=== PATIENT | female | born 1955 | race Hispanic/Latino ===

== ENCOUNTER 2018-02-04 10:59 | Emergency (ER) | payer BC ==
[~2018-02-04] VITALS: Ht 165.1 cm; Wt 71.2 kg
--- NOTE | 2018-02-04 12:42 | Diagnostic Imaging Report ---
EXAM: CT Abdomen and Pelvis WITHOUT contrast INDICATION: \[id number] \S\[id number] right lower quadrant pain for 5 days, status post appendectomy. One ovary has been removed. COMPARISON: None. TECHNIQUE: Abdomen and pelvis were scanned utilizing a multidetector helical scanner from the lung base to the pubic symphysis without administration of IV contrast. Absence of intravenous contrast decreases sensitivity for detection of focal lesions and vascular pathology. Coronal and sagittal reformations were obtained. Routine protocol was performed. IV CONTRAST: None. ORAL CONTRAST: Water RADIATION DOSE: Total DLP: 647.8 mGy*cm Estimated effective dose: (DLP x 0.015 x size factor) mSv COMPLICATIONS: None FINDINGS: LINES and TUBES: Partially visualized pacemaker lead in the right ventricle. The left ventricle is enlarged. Minimal scarring in the left lower lobe. LOWER THORAX: Unremarkable HEPATOBILIARY: Few low-attenuation hepatic cysts with the largest measuring up to 3.9 cm on segment 7/8. No focal hepatic lesions. No biliary ductal dilation. GALLBLADDER: No radio-opaque stones or sludge. No wall thickening. SPLEEN: No splenomegaly. PANCREAS: No focal masses or ductal dilatation. ADRENALS: No adrenal nodules KIDNEYS/URETERS: 6 mm calcified stone in the mid right ureter at the level of L3 vertebral body results in mild hydroureteronephrosis. There are additional few bilateral renal 1-4 mm calcified stones, one on the right in the inferior pole on coronary image 54 and at least 5 on the left. No cystic or solid mass lesions. No stones. GI TRACT: No abnormal distention, wall thickening, or evidence of bowel obstruction. Appendix is surgically absent. PELVIC ORGANS/BLADDER: The urinary bladder appears unremarkable without calcified stones. The uterus is normal in size. The left ovary appears present. Right ovary is not visualized. LYMPH NODES: No lymphadenopathy. VESSELS: Unremarkable. PERITONEUM / RETROPERITONEUM: No free air or fluid. BONES: Unremarkable. SOFT TISSUES: Unremarkable. IMPRESSION: 1. Mild obstructing 6 mm right mid ureteral stone. 2. Few bilateral 1 to 4 mm calcified renal stones. Signed by: Dr. Katiana Kinsey M.D. on 02/04/2018 12:39 PM
[2018-02-04] MEDS ORDERED: KETOROLAC TROMETHAMINE 30 MG/ML VIAL IV STA (13:48)
[2018-02-04] MEDS ORDERED: CIPROFLOXACIN 400 MG/D5W 200ML 200 ML IV ONE (14:00)
[2018-02-04] MEDS ORDERED: SODIUM CHLORIDE 0.9% 1000ML 1,000 ML IV SCH (14:00)
--- OUTSIDE RECORDS SUMMARY | 2018-02-08 13:19 | XMS REPORT | Clinical Summary ---
Author Author [facility] Address Unknown Phone Unavailable Care Team Providers Care Earth Science Technical Officer Name Role Phone Asked, No Pcp PCP Unavailable Allergies Not on File Current Medications Not on file Active Problems Not on file Encounters Date Type Specialty Care Team Description 10/08/2017 Ancillary Procedural Cardiology Edwin Masroor AV block Orders MD Zarina 10/04/2017 Hospital Procedural Cardiology Edwin, Masroor AV block Encounter MD Zarina 07/14/2017 Ancillary Procedural Cardiology Gen, Hinduism Rufino AV block Orders 05/28/2017 Ancillary Procedural Cardiology Kermit Blevins MD PhD Atrial fibrillation, Orders unspecified type 05/05/2017 Ancillary Procedural Cardiology Gen, Hinduism Rufino AV block Orders 04/02/2017 Ancillary Procedural Cardiology Kermit Blevins MD PhD AV block Orders 04/01/2017 Ancillary Procedural Cardiology Kermit Blevins MD PhD AV block Orders after 02/03/2017 Social History Tobacco Use Types Packs/Day Years Used Date Never Assessed Sex Assigned at Date Recorded Not on file Last Filed Vital Signs Not on file Plan of Treatment Health Maintenance Due Date Last Done Comments CERVICAL CANCER SCREENING 1978 BREAST CANCER SCREENING 11/23/2007 COLON CANCER SCREENING 11/23/2007 SHINGRIX VACCINE (#1) 11/23/2007 ZOSTER VACCINE 2017 INFLUENZA VACCINE 11/24/2017 Procedures Procedure Name Priority Date/Time Associated Diagnosis Comments CV PACEMAKER DEFIB REMOTE Routine 10/08/2017 AV block TECH SERVICE 3:40 PM CDT after 02/03/2017 Results Not on fileafter 02/03/2017 Insurance Payer Benefit Subscriber ID Type Phone Address Plan / Group BCBS EXCHANGE BLUE xxxxxxxxxxxx Exchange ADVANTAGE HMO EXCH
== END 2018-02-04 15:58 | disposition home or self-care (01) ==
LOC: FSED 10:59
DX: R10.31 Right lower quadrant pain (principal); N13.2 Hydronephrosis with renal and ureteral calculous obstruction; N39.0 Urinary tract infection, site not specified; Z95.0 Presence of cardiac pacemaker
CPT/HCPCS: 74176; 80048; 80076; 81003; 85025; 87086; 87186; 99284; J1885

== ENCOUNTER → 2018-02-10 | Outpatient (CLI) | payer BC ==
--- NOTE | 2018-02-10 15:14 | Diagnostic Imaging Report ---
EXAM: ABDOMEN-1VIEW (KUB) DATE: 02/10/2018 2:38 PM INDICATION: Kidney stones COMPARISON: 02/04/2018 CT FINDINGS: Bowel Gas Pattern: Significant stool largely secures kidneys. No obstructive changes. Pneumoperitoneum: None. Suspicious Calcifications: None. Other: None. IMPRESSION: Significant colonic stool obscures previously described ureteral/renal calculi. Signed by: Dr. Gian Matthews MD on 02/10/2018 3:11 PM
== END ==
LOC: RAD 14:22
PROVIDERS: ATTEND Urology
DX: N20.0 Calculus of kidney (principal)
CPT/HCPCS: 74018

== ENCOUNTER → 2018-02-23 | Day surgery (SDC) | payer BC ==
[2018-02-21 16:00] LABS: BASOPHILS % 0.2 % (0.0-1.0); EOSINOPHILS # (AUTO) 0.2 (0.0-0.4); EOSINOPHILS % 4.7 % (0.0-6.0); HEMATOCRIT 34.1 % (34.2-44.1); HEMOGLOBIN 11.3 g/dL (12.0-16.0); LYMPHOCYTES # (AUTO) 2.1 (1.0-3.2); LYMPHOCYTES % 51.9 % (18.0-39.1); MEAN CORPUSCULAR HEMOGLOBIN 29.9 pg (28-32); MEAN CORPUSCULAR HGB CONC 33.1 g/dL (31-35); MEAN CORPUSCULAR VOLUME 90.2 fL (81-99); MONOCYTES # (AUTO) 0.4 (0.2-0.8); MONOCYTES % 9.9 % (4.4-11.3); NEUTROPHILS # (AUTO) 1.3 (2.1-6.9); NEUTROPHILS % 33.3 % (38.7-80.0); PLATELET COUNT 126 x10e3/uL (140-360); RED BLOOD COUNT 3.78 x10e6/uL (3.6-5.1); RED CELL DISTRIBUTION WIDTH 13.3 % (11.7-14.4)
--- NOTE | 2018-02-21 16:54 | Diagnostic Imaging Report ---
EXAMINATION: PA and lateral views of the chest. COMPARISON: None CLINICAL HISTORY: Preop exam. DISCUSSION: Lines/tubes: Left upper chest dual lead cardiac device, with distal tips projecting in the right atrium and right ventricle. Lungs: The lungs are well inflated and clear. There is no evidence of pneumonia or pulmonary edema. Pleura: There is no pleural effusion or pneumothorax. Heart and mediastinum: Cardiomediastinal silhouette is borderline enlarged. Pulmonary vasculature is normal. Bones and soft tissues: No acute bony abnormalities. Degenerative changes in the thoracic spine IMPRESSION: No acute cardiopulmonary abnormalities. Signed by: Dr. Wojciech Lockwood M.D. on 02/21/2018 4:51 PM
[~2018-02-23] MED LIST: ACETAMINOPHEN/CODEINE 300MG - 30MG TAB ONE; BELLADONNA/OPIUM 60 MG SUPP PR ONE; CEFTRIAXONE SOD 1 GM VIAL ONE; DEXAMETHASONE SOD PHOS INJ 4 MG/ML VIAL ONE; EPHEDRINE SULFATE INJ 50 MG/10 ML SYR ONE; FENTANYL CITRATE/PF 100MCG/2 ML INJ ONE; IOPAMIDOL 610MG/1ML 300 MG/ML VIAL IV ONE; LIDOCAINE HCL 2% LOCAL INJ 5 ML SDV VIAL INJ ONE; MIDAZOLAM HCL 2 MG/2 ML VIAL ONE; ONDANSETRON HCL INJ 2 MG/ML VIAL ONE; PROPOFOL IV EMULSION 10 MG/ML 20 ML VIAL ONE; SEVOFLURANE INHAL SOLN 250 ML PEN BTL ONE
--- OUTSIDE RECORDS SUMMARY | 2018-02-23 05:13 | XMS REPORT | Clinical Summary ---
Author Author [facility] Organization [facility] Address Unknown Phone Unavailable Care Team Providers Care Cotton Grader Name Role Phone Asked, No Pcp PCP Unavailable Allergies Not on File Current Medications Not on file Active Problems Not on file Encounters Date Type Specialty Care Team Description 10/08/2017 Ancillary Procedural Cardiology Edwin Masroor AV block Orders MD Zarina 10/04/2017 Hospital Procedural Cardiology Edwin, Masroor AV block Encounter MD Zarina 07/14/2017 Ancillary Procedural Cardiology Gen, Buddhism Rufino AV block Orders 05/28/2017 Ancillary Procedural Cardiology Kermit Blevins MD PhD Atrial fibrillation, Orders unspecified type 05/05/2017 Ancillary Procedural Cardiology Gen, Buddhism Rufino AV block Orders 04/02/2017 Ancillary Procedural Cardiology Kermit Blevins MD PhD AV block Orders 04/01/2017 Ancillary Procedural Cardiology Kermit Blevins MD PhD AV block Orders after 02/22/2017 Social History Tobacco Use Types Packs/Day Years [...] block TECH SERVICE 3:40 PM CDT after 02/22/2017 Results Not on fileafter 02/22/2017 Insurance Payer Benefit Subscriber ID Type Phone Address Plan / Group BCBS EXCHANGE BLUE xxxxxxxxxxxx Exchange ADVANTAGE HMO EXCH
--- OUTSIDE RECORDS SUMMARY | 2018-02-23 05:13 | XMS REPORT ---
[facility] [place] Address Unknown Phone Unavailable Care Team Providers Care Imagery Analyst Name Role Phone ZEINA OAKES Unavailable Unavailable Connie BRICE Unavailable Unavailable Problems This patient has no known problems. Allergies, Adverse Reactions, Alerts This patient has no known allergies or adverse reactions. Medications This patient has no known medications. Results Test Description Test Time Test Comments Text Results Atomic Results Result Comments CHEST 2 VIEWS 2018-02-21 16:50:00 [place] [address] Patient Name: CHERYL VILLAFUERTE MR #: [id number] : 1955 Age/Sex: 62/F Req #: [id number] Adm Physician: Ordered by: ZEINA OAKES MD Report #: [id number] Location: OR Room/Bed: Procedure: [id number] DX/CHEST 2 VIEWS Exam Date: 02/21/18 Exam Time: 1635 REPORT STATUS: Signed EXAMINATION: PA and lateral views of the chest. COMPAR BLAKE: None CLINICAL HISTORY: Preop exam. DISCUSSION: Lines/tubes: Left upper chest dual lead cardiac device, with distal tips projecting in the right atrium and right ventricle. Lungs: The lungs are well inflated and clear. There is no evidence of pneumonia or pulmonary edema. Pleura: There is no pleural effusion or pneumothorax. Heart and mediastinum: Cardiomediastinal silhouette is borderline enlarged. Pulmonary vasculature is normal. Bones and soft tissues: No acute bony abnormalities. Degenerative changes in the thoracic spine IMPRESSION: No acute cardiopulmonary abnormalities. Signed by: Dr. Laine Lockwood M.D. on 02/21/2018 4:51 PM Dictated By: LAINE LOCKWOOD MD 50 Transcribed By: EMETERIO on 02/21/181650 COPY TO: ZEINA OAKES MD ABDOMEN-1VIEW (KUB) 2018-02-10 15:10:00 [place] [address] Patient Name: CHERYL VILLAFUERTE MR #: [id number] : 1955 Age/Sex: 62/F Req #: [id number] Adm Physician: Ordered by: ZEINA OAKES MD Report #: [id number] [facility]: [facility] Room/Bed: Procedure: [id number] DX/ABDOMEN-1VIEW (KUB) Exam Date: Exam Time: REPORT STATUS: Signed EXAM: ABDOMEN-1VIEW (KUB) DATE: 02/10/2018 2:38 PM INDICAT ION: Kidney stones COMPARISON: 02/04/2018 CT FINDINGS: Bowel Gas Pattern: Significant stool largely secures kidneys. No obstructive changes. Pneumoperitoneum: None. Suspicious Calcifications: None. Other: None. IMPRESSION: Significant colonic stool obscures previously described ureteral/renal calculi. Signed by: Dr. Gian Matthews MD on 02/10/2018 3:11 PM Dictated By: GIAN MATTHEWS MD 10 Transcribed By: EMETERIO on 02/10/181510 COPY TO: ZEINA OAKES MD CT ABD/PEL WO CONTRAST-HOPD 2018-02-04 12:31:00 [place] [address] Patient Name: CHERYL VILLAFUERTE MR #: [id number] : 1955 Age/Sex: 62/F Req #: [id number] Adm Physician: Ordered by: MARY CARMEN BRICE MD Report #: [id number] Location: [facility] Room/Bed: Procedure: [id number] HOPD/CT ABD/PEL WO CONTRAST- HOPD Exam Date: 02/04/18 Exam Time: 1215 REPORT STATUS: Signed EXAM: CT Abdomen and Pelvis WITHOUT contrast INDICATION: ovary has been removed. COMPARISON: None. TECHNIQUE: Abdomen and pelvis were scanned utilizing a multidetector helical scanner from the lung base to the pubic symphysis without administration of IV contrast. Absence of intravenous contrast decreases sensitivity for detection of focal lesions and vascular pathology. Coronal and sagittal reformations were obtained. Routine protocol was performed. IV CONTRAST: None. ORAL CONTRAST: Water RADIATION DOSE: Total DLP: 647.8 mGy*cm Estimated effective dose: (DLP x 0.015 x size factor) mSv COMPLICATIONS: None FINDINGS: LINES and TUBES: Partially visualized pacemaker lead in the right ventricle. The left ventricle is enlarged. Minimal scarring in the left lower lobe. LOWER THORAX: Unremarkable HEPATOBILIARY: Few low-attenuation hepatic cysts with the largest measuring up to 3.9 cm on segment 7/8. No focal hepatic lesions. No biliary ductal dilation. GALLBLADDER: No radio-opaque stones or sludge. No wall thickening. SPLEEN: No splenomegaly. PANCREAS: No focal masses or ductal dilatation. ADRENALS: No adrenal nodules KIDNEYS/URETERS: 6 mm calcified stone in the mid right ureter at the level of L3 vertebral body results in mild hydroureteronephrosis. There are additional few bilateral renal 1-4 mm calcified stones, one on the right in the inferior pole on coronary image 54 and at least 5 on the left. No cystic or solid mass lesions. No stones. GI TRACT: No abnormal distention, wall thickening, or evidence of bowel obstruction. Appendix is surgically absent. PELVIC ORGANS/BLADDER: The urinary bladder appears unremarkable without calcified stones. The uterus is normal in size. The left ovary appears present. Right ovary is not visualized. LYMPH NODES: No lymphadenopathy. VESSELS: Unremarkable. PERITONEUM / RETROPERITONEUM: No free air or fluid. BONES: Unremarkable. SOFT TISSUES: Unremarkable. IMPRESSION: 1. Mild obstructing 6 mm right mid ureteral stone. 2. Few bilateral 1 to 4 mm calcified renal stones. Signed by: Dr. Jack Coleman M.D. on 02/04/2018 12:39 PM Dictated By: JACK COLEMAN MD 1239 Transcribed By: EMETERIO on 02/04/18 1239 COPY TO: MARY CARMEN BRICE MD
[2018-02-23 06:24] LABS: ANION GAP 11.2 mmol/L (8-16); BLOOD UREA NITROGEN 13 mg/dL (7-26); BUN/CREATININE RATIO 21 (6-25); CALCIUM 9.1 mg/dL (8.4-10.2); CARBON DIOXIDE 26 mmol/L (22-29); CHLORIDE 107 mmol/L (98-107); CREATININE, SERUM 0.63 mg/dL (0.57-1.11); EST GLOMERULAR FILTRATION RATE > 60 ML/MIN (60-); GLUCOSE 93 mg/dL (74-118); POTASSIUM 3.2 mmol/L (3.5-5.1); SODIUM 141 mmol/L (136-145)
--- NOTE | 2018-02-23 07:07 | Diagnostic Imaging Report ---
PROCEDURE:X-RAY ABDOMEN - KUB COMPARISON:02/10/2018. CT abdomen and pelvis without contrast 02/04/2018 INDICATIONS:PRE-OP CALCULUS OF KIDNEY FINDINGS: 6 mm mid right ureteral calculus described on the comparison CT is not definitively visualized by plain radiography. 2 calcifications measuring up to 6 mm are identified projecting over the left renal shadow. Bowel gas pattern is nonobstructive. Regional skeletal structures are intact. CONCLUSION: Small left renal calculi as above. Right ureteral calculus described on the comparison CT is not identified by plain radiography. Dictated by: Macho Lora M.D. on 02/23/2018 at 7:15 Electronically approved by: Macho Lora M.D. on 02/23/2018 at 7:15
[2018-02-23 09:45] VITALS: BP 164/86
--- NOTE | 2018-04-04 04:56 | Operative Report ---
DATE OF PROCEDURE: February 23, 2018 PREOPERATIVE DIAGNOSES 1. Nephrolithiasis. 2. Urinary tract infections. POSTOPERATIVE DIAGNOSES 1. Nephrolithiasis. 2. Urinary tract infections. 3. Left nephrolithiasis. 4. Bilateral ureteral strictures. 5. Bilateral hydronephrosis due to stricture of the ureter. 6. Urethral stenosis. 7. Grade-2 cystocele. 8. Grade-1 rectocele. 9. Urethral hypomobility. 10. Atrophic (senile) vaginitis. OPERATIONS PERFORMED 1. Cystourethroscopy with bilateral ureteral catheterization and retrograde ureteropyelography (separate procedure performed for the urinary tract infections). 2. Interpretation of retrograde ureteropyelography. 3. Supervision of fluoroscopy. No radiologist present. 4. Left ureteroscopy with dilation and calibration of ureteral stricture (separate procedure performed for the diagnosis of stricture). 5. Left ureteroscopy with stone manipulation (separate procedure performed for the left nephrolithiasis). 6. Right ureteroscopy with dilation of right ureteral stricture (separate procedure performed for the diagnosis of stricture). 7. Urological services for supervision and interpretation of ureteroscopy. 8. Pelvic examination under anesthesia. 9. Cystourethroscopy with insertion of bilateral indwelling ureteral stents (separate procedure performed for the hydronephrosis). ANESTHESIA: General. CLINICAL SUMMARY: Aurelia Sotomayor is a 62-year-old woman, who presents with urinary tract infections and nephrolithiasis. She was brought for management. She is aware of the risks of bleeding, infection, injury to adjacent structures, high likelihood of additional procedures, and she elected to proceed. OPERATIVE PROCEDURE IN DETAIL: Informed consent was verified. Aurelia Sotomayor was properly identified, taken to the operating room, placed on the cystoscopy table in supine position. Anesthesia was uneventfully begun. Patient was then carefully and gently repositioned in the dorsal lithotomy position with all pressure points well padded. Her genitalia were prepared and draped in usual sterile fashion. A 22.5-[place] cystoscope sheath with the obturator in place could not be easily placed into the patient's urethra. It was calibrated at 16-[place] in size and dilated to 28-[place] in size. This enabled us to easily place the 22.5-[place] cystoscope sheath with the obturator in place and the bladder was drained. Panendoscopy revealed no suspicious mucosal lesions, no tumors, no stones, and no diverticula. Normally positioned and configured ureteral orifices were identified. A ureteral catheter was used to cannulate the right ureter and retrograde ureteropyelography was performed. We then passed a guidewire into the left ureter. We then proceeded with guiding a ureteroscope up into the right ureter. We encountered a ureteral stricture. We dilated across this stricture with the ureteroscope with an aid of a secondary guidewire. As we proceeded, there was bleeding noted and we, therefore, decided to stop in order to avoid stirring up any more bleeding. Therefore, the ureteroscope was withdrawn. With cystoscopic fluoroscopic guidance, a right-sided indwelling ureteral stent was then placed, coiled in the patient's kidney, as well as the patient's bladder. Ureteral catheter was inserted in the left ureter and retrograde ureteropyelography was performed. A guidewire was then placed into the left ureter. The semirigid ureteroscope was then placed alongside the wire up into the left ureter. We dilated a stricture in the left ureter as well. We identified small stones within the ureter. They were too small to grasp. We irrigated the small stones. A secondary guidewire was left in place. We guided this flexible ureteroscope over the secondary guidewire up into the level of the patient's kidney. Panendoscopy revealed Ryley's plaques and some fine sand. We irrigated the sand and thus, manipulated it and loosened it, but we were unable to identify any larger stones. Therefore, the ureteroscope was withdrawn. With cystoscopic fluoroscopic guidance, a left-sided indwelling ureteral stent was then placed. It was coiled in patient's kidney as well as patient's bladder. Interpretation of retrograde ureteropyelography: Contrast was instilled in retrograde fashion bilaterally. Ureteral strictures were documented bilaterally. There was fullness of both upper collecting systems. The stents were in good position, coiled in the patient's kidneys, as well as the patient's bladder at the end the case. Patient's bladder was drained and the cystoscope was withdrawn. Pelvic examination revealed grade-2 cystocele with a grade-1 rectocele. There was urethral hypermobility and atrophic (senile) vaginitis. The patient was then uneventfully reversed from anesthesia and taken to the recovery room in stable condition. Explicit postoperative instructions were given. Will return the patient to the operating room to remove her stents, perform bilateral ureteroscopy, and evaluate and manage any residual stones. HOLLY: 04/04/2018 02:56 Job#: [id number] [id number]
== END | disposition home or self-care (01) ==
LOC: OR 05:11
PROVIDERS: ATTEND Urology
DX: N20.0 Calculus of kidney (principal); N13.1 Hydronephrosis with ureteral stricture, not elsewhere classified; N39.0 Urinary tract infection, site not specified; N35.92 Unspecified urethral stricture, female; N81.10 Cystocele, unspecified; N81.6 Rectocele; N36.41 Hypermobility of urethra; N95.2 Postmenopausal atrophic vaginitis; I45.10 Unspecified right bundle-branch block; I44.0 Atrioventricular block, first degree; Z01.810 Encounter for preprocedural cardiovascular examination; Z01.812 Encounter for preprocedural laboratory examination; Z01.818 Encounter for other preprocedural examination; Z95.0 Presence of cardiac pacemaker
CPT/HCPCS: 36415 ×2; 52332; 52344; 52352; 71046; 74420; 80048; 83970; 84550; 85025; 93005; C2617 ×2; J0696; J1100; J2001; J2250; J2405; J2704; Q9967; 74018

== ENCOUNTER → 2018-03-23 | Day surgery (SDC) | payer BC ==
[~2018-03-23] MED LIST changes: -ACETAMINOPHEN/CODEINE 300MG - 30MG TAB ONE; -EPHEDRINE SULFATE INJ 50 MG/10 ML SYR ONE; +IOPAMIDOL 300MG/ML 50ML INFUS..BTL IV ONE; -IOPAMIDOL 610MG/1ML 300 MG/ML VIAL IV ONE
--- OUTSIDE RECORDS SUMMARY | 2018-03-23 07:26 | XMS REPORT | Clinical Summary ---
Author Author [facility] Organization [facility] Address Unknown Phone Unavailable Care Team Providers Care Recordak Operator Name Role Phone Asked, No Pcp PCP Unavailable Allergies Not on File Medications Not on file Active Problems Not on file Encounters Care Team Description Date Type Specialty America Pineda MD AV block 10/04/2017 Hospital Procedural Cardiology Encounter after 03/22/2017 Social History Date Tobacco Use Types Packs/Day Years Used Never Assessed Sex Assigned at Date Recorded Not on file Industry Job Start Date Occupation Not on file Not on file Not on file Travel End Travel History Travel Start No recent travel history available. Last Filed Vital Signs Not on file Plan of Treatment Health Maintenance Due Date Last Done Comments MMR VACCINES (1 of 1 - 1958 Standard series) CERVICAL CANCER SCREENING 1978 BREAST CANCER SCREENING 11/23/2007 COLON CANCER SCREENING 11/23/2007 SHINGRIX VACCINE (1 of 2) 11/23/2007 ZOSTER VACCINE 2017 INFLUENZA VACCINE 11/24/2017 HEPATITIS B VACCINES Aged Out No longer eligible based on patient's age to complete this topic IPV VACCINES Aged Out No longer eligible based on patient's age to complete this topic MENINGOCOCCAL VACCINE Aged Out No longer eligible based on patient's age to complete this topic VARICELLA VACCINES Aged Out No longer eligible based on patient's age to complete this topic Procedures Comments Procedure Name Priority Date/Time Associated Diagnosis CV PACEMAKER DEFIB REMOTE Routine 10/08/2017 AV block TECH SERVICE 3:40 PM CDT after 03/22/2017 Results Not on fileafter 03/22/2017 Insurance Payer Benefit Subscriber ID Type Phone Address Plan / Group BCBS EXCHANGE BLUE xxxxxxxxxxxx Exchange ADVANTAGE HMO EXCH Advance Directives Patient has advance care planning documents on file. For more information, jaye e contact: Farhad Pratt[address] [place] [address]
[2018-03-23 13:05] VITALS: BP 144/69
--- NOTE | 2018-03-24 00:08 | Operative Report ---
DATE OF PROCEDURE: March 23, 2018 PREOPERATIVE DIAGNOSES: 1. Urolithiasis. 2. Bilateral indwelling ureteral stents. POSTOPERATIVE DIAGNOSES: 1. Right ureterolithiasis. 2. Left nephrolithiasis. 3. Bilateral indwelling ureteral stents. 4. Mild cystocele. 5. Mild rectocele. 6. Urethral hypermobility. 7. Atrophic (senile) vaginitis. OPERATIONS PERFORMED: 1. Cystourethroscopy with removal of bilateral indwelling ureteral stents (separate procedure performed for the diagnosis of stents done with separate scope). 2. Right ureteroscopy with holmium laser lithotripsy and insertion of stent (separate procedure performed for the right ureterolithiasis). 3. Left ureteroscopy with holmium laser lithotripsy of kidney stone and insertion of stent (separate procedure performed for the left-sided stone). 4. Radiological services for supervision and interpretation of ureteroscopy. 5. Interpretation of retrograde ureteropyelography. 6. Supervision of fluoroscopy, no radiologist present. 7. Pelvic examination under anesthesia. ANESTHESIA: General. COMPLICATIONS: None. CLINICAL SUMMARY: Aurelia Sotomayor is a 62-year-old woman who several weeks ago underwent dilation of bilateral ureteral strictures with left ureteroscopy and stone manipulation. She is brought to the operating room for followup procedures. She is aware of the risks of bleeding, infection, injury to adjacent structures, need for additional procedures, and elected to proceed. OPERATIVE PROCEDURE IN DETAIL: Informed consent was verified. Aurelia Sotomayor was properly identified, taken to the operating room, and placed on the cystoscopy table in supine position. Anesthesia was uneventfully begun. The patient was then carefully and gently repositioned in the dorsal lithotomy position with all pressure points well padded. Her genitalia were prepared and draped in usual sterile fashion. The 22.5-Mongolian cystourethroscope sheath with the obturator in place was atraumatically inserted into patient's urethra and bladder was drained. Panendoscopy revealed bilateral indwelling ureteral stents, but there were no suspicious mucosal lesions and no stones. A guidewire was then placed into the right ureter and guided to the level of the patient's kidney. The stent was then grasped, completely removed, and discarded. A semirigid ureteroscope was then placed alongside the guidewire and guided into the right ureter where we identified a stone. Holmium laser lithotripsy was performed to whittle the stone down to smaller fragments, and then a basket was utilized to atraumatically extract these fragments. There was no sign of recurrent ureteral stricture. A flexile ureteroscope was then placed. It was guided into the patient's kidney. Careful panendoscopy revealed Ryley's plaques, but no kidney stones. With cystoscopic and fluoroscopic guidance, a right-sided indwelling ureteral stent was then placed. It was coiled in patient's kidney as well as patient's bladder. The retaining suture was cut short. A guidewire was then placed into the left ureter and guided to the level of the patient's kidney. The left ureteral stent was grasped, pulled out through the urethral meatus, and discarded. Semirigid ureteroscopy was performed on left hand side. It revealed some fine sand within the ureter, but no stones that could be grasped or lasered. We then placed the flexible ureteroscope. We guided it to level of the patient's kidney. The flexible ureteroscope revealed stones within the kidney. Holmium laser lithotripsy was performed to vaporize these stones into smaller fragments. These fragments were too small to grasp, but they are all passable, and very fine sand is the only thing that remains. With cystoscopic and fluoroscopic guidance, a left-sided indwelling ureteral stent was then placed. It was coiled in patient's kidney as well as patient's bladder. The retaining suture was cut short. Interpretation of retrograde ureteropyelography: Contrast was instilled in retrograde fashion via the ureteroscope. There was bilateral hydronephrosis with some caliceal blunting. The stents were in good position, coiled in patient's kidney as well as patient's bladder at the end of the case. The patient's bladder was drained. The cystoscope was withdrawn. Pelvic examination under anesthesia revealed a grade 1 cystocele, grade 1 rectocele. There was urethral hypermobility and atrophic vaginitis. No suspicious mucosal lesions were identified. There were no abnormal palpable pelvic masses. A belladonna and opium suppository was placed, and the patient was uneventfully reversed from anesthesia and taken to recovery room in stable condition. There were no complications. Explicit postop instructions were given. Will return the patient to the operating room to remove her stents and re-evaluate the stone burden remaining. Job#: [id number] cc:ROMA REYES MD
== END | disposition home or self-care (01) ==
LOC: OR 07:23
PROVIDERS: ATTEND Urology
DX: N20.1 Calculus of ureter (principal); N20.0 Calculus of kidney; Z46.6 Encounter for fitting and adjustment of urinary device; N13.30 Unspecified hydronephrosis; N28.89 Other specified disorders of kidney and ureter; N81.10 Cystocele, unspecified; N81.6 Rectocele; N36.41 Hypermobility of urethra; N95.2 Postmenopausal atrophic vaginitis; Z95.0 Presence of cardiac pacemaker
CPT/HCPCS: 52356; 74420; 88300; C1758; C2617; J0696; J1100; J2001; J2250; J2405; J2704; Q9967

== ENCOUNTER → 2018-04-13 | Day surgery (SDC) | payer BC ==
[2018-04-11 15:43] LABS: BASOPHILS % 0.6 % (0.0-1.0); EOSINOPHILS # (AUTO) 0.2 (0.0-0.4); EOSINOPHILS % 6.4 % (0.0-6.0); HEMATOCRIT 34.6 % (34.2-44.1); HEMOGLOBIN 10.9 g/dL (12.0-16.0); LYMPHOCYTES # (AUTO) 1.6 (1.0-3.2); MEAN CORPUSCULAR HEMOGLOBIN 28.8 pg (28-32); MEAN CORPUSCULAR HGB CONC 31.5 g/dL (31-35); MEAN CORPUSCULAR VOLUME 91.3 fL (81-99); MONOCYTES # (AUTO) 0.4 (0.2-0.8); MONOCYTES % 9.8 % (4.4-11.3); NEUTROPHILS # (AUTO) 1.4 (2.1-6.9); NEUTROPHILS % 38.9 % (38.7-80.0); PLATELET COUNT 130 x10e3/uL (140-360); RED BLOOD COUNT 3.79 x10e6/uL (3.6-5.1); RED CELL DISTRIBUTION WIDTH 12.3 % (11.7-14.4)
[2018-04-11 16:01] LABS: ANION GAP 13.2 mmol/L (8-16); BLOOD UREA NITROGEN 17 mg/dL (7-26); BUN/CREATININE RATIO 27 (6-25); CALCIUM 9.1 mg/dL (8.4-10.2); CARBON DIOXIDE 26 mmol/L (22-29); CHLORIDE 110 mmol/L (98-107); CREATININE, SERUM 0.62 mg/dL (0.57-1.11); EST GLOMERULAR FILTRATION RATE > 60 ML/MIN (60-); GLUCOSE 85 mg/dL (74-118); POTASSIUM 4.2 mmol/L (3.5-5.1); SODIUM 145 mmol/L (136-145)
[~2018-04-13] MED LIST changes: +BELLADONNA/OPIUM 30 MG SUPP RC ONE; -BELLADONNA/OPIUM 60 MG SUPP PR ONE; -CEFTRIAXONE SOD 1 GM VIAL ONE; +CEFTRIAXONE SOD 1 GM/NS 50 ML 50 ML IV ONE; -IOPAMIDOL 300MG/ML 50ML INFUS..BTL IV ONE; +IOPAMIDOL 610MG/1ML 300 MG/ML VIAL IV ONE; -ONDANSETRON HCL INJ 2 MG/ML VIAL ONE; +ONDANSETRON HCL INJ 2MG/ML 2ML 2 MG/ML VIAL ONE
--- OUTSIDE RECORDS SUMMARY | 2018-04-13 09:31 | XMS REPORT | Clinical Summary ---
Author Author [facility] Organization [facility] Address Unknown Phone Unavailable Care Team Providers [facility] [employer] Name Role Phone Asked, No Pcp PCP Unavailable Allergies Not on File Medications Not on file Active Problems Not on file Encounters Care Team Description Date Type Specialty America Pineda MD AV block 10/04/2017 Hospital Procedural Cardiology Encounter after 04/12/2017 Social History Date Tobacco Use Types Packs/Day [...] CANCER SCREENING 11/23/2007 COLON CANCER SCREENING 11/23/2007 SHINGLES VACCINES (1 of 11/23/2007 2) INFLUENZA VACCINE 11/24/2017 Procedures Comments Procedure Name Priority Date/Time Associated Diagnosis CV PACEMAKER DEFIB REMOTE Routine 10/08/2017 AV block TECH SERVICE 3:40 PM CDT after 04/12/2017 Results Not on fileafter 04/12/2017 Insurance Payer Benefit Subscriber ID Type Phone Address Plan / Group BCBS EXCHANGE BLUE xxxxxxxxxxxx Exchange ADVANTAGE HMO EXCH Advance Directives Patient has advance care planning documents on file. For more information, jaye oconnor contact: Farhad Russell [address] [place] [address]
--- NOTE | 2018-04-13 10:29 | Diagnostic Imaging Report ---
EXAM: ABDOMEN-1VIEW (KUB) DATE: 04/13/2018 12:00 AM INDICATION: ,Preoperative, renal calculi Stents COMPARISON: 02/23/2018 FINDINGS: Bowel Gas Pattern: Non-obstructive. Pneumoperitoneum: None. Suspicious Calcifications: Bilateral ureteral stents present. No distinct calcifications along stent. Stool and bowel gas obscures kidneys. Other: Right ventricular pacemaker lead partially visualized. IMPRESSION: Bilateral ureteral stents. Signed by: Dr. Gian Matthews MD on 04/13/2018 10:26 AM
[2018-04-13 12:40] VITALS: BP 146/82
--- NOTE | 2018-06-07 02:18 | Operative Report ---
DATE OF PROCEDURE: April 13, 2018 PREOPERATIVE DIAGNOSES: 1. Nephrolithiasis. 2. Bilateral indwelling ureteral stents. 3. Grade 2 cystocele. 4. Urethral hypermobility. 5. Rectocele. 6. Atrophic vaginitis. POSTOPERATIVE DIAGNOSES: 1. Nephrolithiasis. 2. Bilateral indwelling ureteral stents. 3. Grade 2 cystocele. 4. Urethral hypermobility. 5. Rectocele. 6. Atrophic vaginitis. OPERATIONS PERFORMED: 1. Cystourethroscopy with complicated removal of bilateral indwelling ureteral stents (separate procedure performed with separate scope for diagnosis of the stents). 2. Bilateral ureteroscopy with stone manipulation (separate procedure performed for the fine sand remaining in the patient's kidneys bilaterally). 3. Radiological services for supervision and interpretation of ureteroscopy. 4. Interpretation of retrograde ureteropyelography. 5. Supervision of fluoroscopy, no radiologist present. 6. Pelvic examination under anesthesia. ANESTHESIA: General. COMPLICATIONS: None. CLINICAL SUMMARY: Aurelia Sotomayor is a 62-year-old woman who had bilaterally urolithiasis. She underwent ureteral stenting, bilateral procedures. She is brought to the operating room to remove the stents and hopefully render her stent-free and stone-free. She is aware of the risks of bleeding, infection, injury to adjacent structures, need for additional procedures, and elected to proceed. OPERATIVE PROCEDURE IN DETAIL: Informed consent was verified. Aurelia Sotomayor was properly identified, taken to the operating room, and placed on the cystoscopy table in supine position. Anesthesia was uneventfully begun. The patient was then carefully and gently repositioned in dorsal lithotomy position with all pressure points well padded. Her genitalia were prepared and draped in usual sterile fashion. The 22.5-[place] cystoscope sheath with the obturator in place was atraumatically inserted into patient's urethra and bladder was drained. Panendoscopy of the urinary bladder revealed no suspicious mucosal lesions. There were no tumors, no stones, and no diverticula. Normally positioned and configured ureteral orifices were identified. Identical procedures were performed bilaterally with identical results. We placed a guidewire into 1 ureter and guided to the level of the patient's kidney. The stent was then grasped, completely removed, and discarded. A semirigid ureteroscope was then placed alongside the guidewire and guided to the level of midureter and no stones were identified, but there was mild sand noted bilaterally. The semirigid ureteroscope was withdrawn. A flexible ureteroscope was then placed over the guidewire and guided to the level of the patient's kidney. Careful panendoscopy revealed some fine sand. This is the only sign of stones that were residual from the prior ureteroscopy and laser lithotripsy. This fine sand was too small to grasp. We irrigated this sand loose from the mucosa. This sand should be passable without the necessity of a stent. No suspicious lesions were identified. We carefully re-examined the ureter as we exited it. A combination of procedures was identified on the contralateral side with identical results. Interpretation of retrograde ureteropyelography: Contrast was instilled in retrograde fashion via the ureteroscopes. There was bilateral fullness. This was more prominent on the right than on the left. The left renal pelvis was more bifid. The right renal pelvis contained short calices and a large capacious pelvis. Contrast could be seen freely flowing down both ureters in an unobstructed fashion. The patient's bladder was then drained. The cystoscope was withdrawn. Pelvic examination under anesthesia revealed grade 2 cystocele with urethral hypermobility. There was a rectocele and atrophic vaginitis. No suspicious mucosal lesions could be identified and there were no palpable pelvic masses. The patient was then uneventfully reversed from anesthesia and taken to recovery room in stable condition. There were no complications to the procedure. She tolerated the procedure well. Plans will be to follow the patient up on an ongoing basis both to manage any voiding symptomatology and also to pursue metabolic stone workup and future stone prevention. Job#: [id number]
== END | disposition home or self-care (01) ==
LOC: OR 09:29
PROVIDERS: ATTEND Urology
DX: N20.0 Calculus of kidney (principal); Z46.6 Encounter for fitting and adjustment of urinary device; N81.10 Cystocele, unspecified; N36.41 Hypermobility of urethra; N81.6 Rectocele; N95.2 Postmenopausal atrophic vaginitis; I44.30 Unspecified atrioventricular block; Z01.812 Encounter for preprocedural laboratory examination; Z95.0 Presence of cardiac pacemaker
CPT/HCPCS: 36415; 52351; 74018; 80048; 84550; 85025; 93005; J0696; J1100; J2001; J2250; J2405; J2704; Q9967; 74420

== ENCOUNTER → 2018-06-24 | Outpatient (CLI) | payer BC ==
--- NOTE | 2018-06-24 12:38 | Diagnostic Imaging Report ---
EXAM: ABDOMEN-1VIEW (KUB) DATE: 06/24/2018 11:31 AM INDICATION: Kidney stone COMPARISON: KUB, 04/13/2018 FINDINGS: 2 supine views of the abdomen show a normal distribution of air in the small and large bowel. Since previous exam bilateral ureteral stents have been removed. No discrete abnormal calcifications are projected on either kidney, along the expected path of IV ureter or urinary bladder. However, in some areas small calcifications may be obscured by overlying bone or bowel. Again noted is an intracardiac lead. No acute bony abnormality. IMPRESSION: 1. No bowel dilatation or evidence for obstruction. 2. Interval removal of bilateral ureteral stents. Signed by: Dr. Neal Almanzar M.D. on 06/24/2018 12:35 PM
== END ==
LOC: RAD 11:22
PROVIDERS: ATTEND Urology
DX: N20.0 Calculus of kidney (principal)
CPT/HCPCS: 74018

== ENCOUNTER → 2018-09-29 | Outpatient (CLI) | payer BC ==
--- NOTE | 2018-09-29 14:25 | Diagnostic Imaging Report ---
Exam: KUB - 2 views Clinical History: Renal stone. Comparison: KUB 06/24/2018. Findings: A 5 mm calcification projects over the left upper kidney. Bowel gas partially obscures visualization of the kidneys. No evidence of calcification overlying the expected course of the ureters. Nonobstructive bowel gas pattern. Moderate amount of stool in the colon. No acute osseous abnormality. Impression: Likely 5 mm left upper pole renal stone. Signed by: Dr. Lucio Davidson MD on 09/29/2018 2:21 PM
== END ==
LOC: RAD 13:27
PROVIDERS: ATTEND Urology
DX: N20.0 Calculus of kidney (principal)
CPT/HCPCS: 74018

== ENCOUNTER → 2020-02-02 | Outpatient (CLI) | payer BC ==
[~2020-02-02] MED LIST changes: -BELLADONNA/OPIUM 30 MG SUPP RC ONE; -CEFTRIAXONE SOD 1 GM/NS 50 ML 50 ML IV ONE; -DEXAMETHASONE SOD PHOS INJ 4 MG/ML VIAL ONE; -FENTANYL CITRATE/PF 100MCG/2 ML INJ ONE; +HYDROCHLOROTHIA25 MG; -IOPAMIDOL 610MG/1ML 300 MG/ML VIAL IV ONE; -LIDOCAINE HCL 2% LOCAL INJ 5 ML SDV VIAL INJ ONE; -MIDAZOLAM HCL 2 MG/2 ML VIAL ONE; -ONDANSETRON HCL INJ 2MG/ML 2ML 2 MG/ML VIAL ONE; -PROPOFOL IV EMULSION 10 MG/ML 20 ML VIAL ONE; -SEVOFLURANE INHAL SOLN 250 ML PEN BTL ONE
== END ==
LOC: RAD 14:46
PROVIDERS: ATTEND Urology
DX: N20.0 Calculus of kidney (principal)
CPT/HCPCS: 74018

== ENCOUNTER → 2020-03-01 | Outpatient (CLI) | payer BC ==
--- NOTE | 2020-03-01 10:49 | Diagnostic Imaging Report ---
EXAM: CT Abdomen and Pelvis WITHOUT intravenous contrast INDICATION: Renal calculus COMPARISON: KUB 02/02/2020, CT abdomen and pelvis 02/04/2018 TECHNIQUE: Abdomen and pelvis were scanned utilizing a multidetector helical scanner from the lung base to the pubic symphysis without administration of IV contrast. Coronal and sagittal reformations were obtained. IV CONTRAST: None ORAL CONTRAST: Water COMPLICATIONS: None RADIATION DOSE: Total DLP: 284 mGy*cm Dose modulation, iterative reconstruction, and/or weight based adjustment of the mA/kV was utilized to reduce the radiation dose to as low as reasonably achievable. FINDINGS: LOWER THORAX: Normal. HEPATOBILIARY: Right hepatic 5.2 cm cyst. Additional subcentimeter hepatic dome hypodensity is too small to adequately characterize but likely also represents a cyst. No additional focal liver lesions. Unremarkable gallbladder. SPLEEN: No splenomegaly. PANCREAS: No focal masses or ductal dilatation. ADRENALS: No adrenal nodules. KIDNEYS/URETERS: 7 mm left upper pole renal calculus and 5 mm right upper pole renal calculus. No hydronephrosis or hydroureter. PELVIC ORGANS/BLADDER: Unremarkable. PERITONEUM / RETROPERITONEUM: No free air or fluid. LYMPH NODES: No lymphadenopathy. VESSELS: Mild scattered atherosclerotic calcifications of the nonaneurysmal abdominal aorta and major branches. GI TRACT: No distention or wall thickening. BONES AND SOFT TISSUES: Unremarkable. IMPRESSION: 7 mm left upper pole and 5 mm right upper pole renal calculi. No hydronephrosis or hydroureter. Signed by: Huber Ruth MD on 03/01/2020 10:46 AM
== END ==
LOC: CT 09:38
PROVIDERS: ATTEND Urology
DX: N20.1 Calculus of ureter (principal); N13.30 Unspecified hydronephrosis
CPT/HCPCS: 74176

== ENCOUNTER 2020-03-22 11:47 | Emergency (ER) | payer BC ==
[~2020-03-22] VITALS: Ht 165.1 cm; Wt 68.9 kg
--- NOTE | 2020-03-22 11:57 | Emergency Department Note ---
History of Present Illnes History of Present Illness Chief Complaint: Genitourinary History of Present Illness This is a 64 year old female with urgency since this AM. [place] for lithotripsy with Dr Parada 04/03/20. Historian: Patient Ore Tester Required: No Onset (how long ago): hour(s) Location: suprapubic Radiation: Reports non-radiation Severity: mild Onset quality: gradual Duration (how long): hour(s) Timing of current episode: constant Progression: worsening Chronicity: new Context: Denies recent illness, Denies recent surgery, Denies recent immobilization, Denies recent travel, Denies trauma/injury, Denies new medications, Denies hx of DVT/PE, Denies non-compliance w/ medications, Denies other Relieving factors: none Exacerbating factors: none Associated symptoms: Denies denies other symptoms, Denies confusion, Denies chest pain, Denies cough, Denies diaphoresis, Denies fever/chills, Denies headaches, Denies loss of appetite, Denies malaise, Denies nausea/vomiting, Denies rash, Denies seizure, Denies shortness of breath, Denies syncope, Denies weakness, Denies other Treatments prior to arrival: none Past Medical/Family History Physician Review I have reviewed the patient's past medical and family history. Any updates have been documented here. Past Medical History Recent Fever: No Clinical Suspicion of Infectio: Yes New/Unexplained Change in Ment: No Past Medical History: None Past Surgical History: Appendectomy, Pacer/AICD Other Surgery: PACEMAKER FOR LOW HERAT RATE. 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 Social History Smoking Cessation: Never Smoker Alcohol Use: None Any Illegal Drug Use: No Other Last Tetanus: UNK Review of Systems Review of Systems Constitutional: Reports no symptoms EENTM: Reports no symptoms Cardiovascular: Reports no symptoms Respiratory: Reports no symptoms Gastrointestinal: Reports no symptoms Genitourinary: Reports dysuria, Reports other (burning) Musculoskeletal: Reports no symptoms Integumentary: Reports no symptoms Neurological: Reports no symptoms Psychological: Reports no symptoms Endocrine: Reports no symptoms Hematological/Lymphatic: Reports no symptoms Physical Exam Related Data Allergies: Coded Allergies: No Known Allergies (Unverified , 02/04/18) Vital signs reviewed: Yes Physical Exam CONSTITUTIONAL Constitutional: Present well-developed, Present well-nourished HENT HENT: Present normocephalic, Present atraumatic, Present oropharynx clear/moist, Present nose normal HENT L/R: Present left ext ear normal, Present right ext ear normal EYES Eyes: Reports PERRL, Reports conjunctivae normal NECK Neck: Present ROM normal PULMONARY Pulmonary: Present effort normal, Present breath sounds normal CARDIOVASCULAR Cardiovascular: Present regular rhythm, Present heart sounds normal, Present capillary refill normal, Present normal rate GASTROINTESTINAL Abdominal: Present soft, Present nontender, Present bowel sounds normal GENITOURINARY Genitourinary: Present exam deferred SKIN Skin: Present warm, Present dry MUSCULOSKELETAL Musculoskeletal: Present ROM normal NEUROLOGICAL Neurological: Present alert, Present oriented x 3, Present no gross motor or sensory deficits PSYCHOLOGICAL Psychological: Present mood/affect normal, Present judgement normal Results Laboratory Lab results reviewed: Yes Laboratory comments UA : large leukocytes, large blood, (+) proteins Assessment & Plan Medical Decision Making MDM Diff DX: UTI, kidney stone, pyelonephritis Assessment & Plan Final Impression: (1) UTI (urinary tract infection) Depart Disposition: HOME, SELF-jail Meds Reported Medications Hydrochlorothiazide (HYDROCHLOROTHIAZIDE) 25 Mg Tablet, 12.5 MG DAILY, #30 TAB 03/22/20 ROSHNI STILES DO Mar 22, 2020 11:57
--- NOTE | 2020-03-22 12:00 | NUR ---
urine culture collected and sent to the lab
[2020-03-22] MEDS ORDERED: HYDROCHLOROTHIA25 MG (12:15)
--- OUTSIDE RECORDS SUMMARY | 2020-03-22 12:17 | XMS REPORT | Clinical Summary ---
Author Author BONI NoveltyLabNorth Canyon Medical CenterWeilver Network Technology ([place])[facility] HospitalSnooth MediaConfluence [facility] Address Unknown Phone Unavailable Care Team Providers Care Cra Name Role Phone Davy Zaman PCP Allergies No Known Allergies Medications End Date Status Medication Sig Dispensed Refills Start Date Active hydroCHLOROthiazide Take 12.5 mg 0 (MICROZIDE) 12.5 mg by mouth as capsule needed (states for kidney stones) . 05/03/2019 Discontinued (Error) potassium chloride Take 10 mEq 0 (KLOR-CON) 10 MEQ CR by mouth 2 tablet (two) times daily. 05/14/2019 mINOCYCLine Take 1 20 capsule 0 (MINOCIN,DYNACIN) 100 MG capsule (100 0 capsule mg total) by mouth every 12 (twelve) hours for 10 days. 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/03/2019 Encounters Care Team Description Date Type Specialty Randy Gonzalez MD 05/03/2019 Anesthesia Event Marvin Samson MD PACEMAKER GEN & LEADS - INSERTION W/ MAC ANESTHESIA (SING/DUAL/MULT) 05/03/2019 Surgery Marvin Samson MD AV block 05/03/2019 Hospital Cardiology - Encounter 05/04/2019 05/03/2019 Orders Only General Internal Me Marcel Cheng MD Presence of cardiac pacemaker (Primary D x) 03/29/2019 Outside Orders Central Scheduling after 03/22/2019 Social History Date Tobacco Use Types Packs/Day Years Used Never Smoker Smokeless Tobacco: Never Used Drinks/Week oz/Week Comments Alcohol Use No Alcohol Habits Answer Date Recorded How often do you have a drink containing alcohol? Never 05/03/2019 How many drinks containing alcohol do you have on No t asked a typical day when you are drinking? How often do you have six or more drinks on one Not asked occasion? Sex Assigned at Date Recorded Not on file Last Filed Vital Signs Reading Time Taken Comments Vital Sign 142/68 05/04/2019 8:46 AM PROFESSOR OF MANAGEMENT Blood Pressure 65 05/04/2019 8:46 AM PROFESSOR OF MANAGEMENT Pulse 36.8 C (98.2 F) 05/04/2019 7:29 AM PROFESSOR OF MANAGEMENT Temperature 20 05/04/2019 8:46 AM PROFESSOR OF MANAGEMENT Respiratory Rate 97% 05/04/2019 8:46 AM PROFESSOR OF MANAGEMENT Oxygen Saturation - - Inhaled Oxygen Concentration 71 kg (156 lb 8.4 oz) 05/03/2019 7:25 AM PROFESSOR OF MANAGEMENT Weight 165.1 cm (5' 5") 05/03/2019 7:25 AM PROFESSOR OF MANAGEMENT Height 26.05 05/03/2019 7:25 AM PROFESSOR OF MANAGEMENT Body Mass Index Plan of Treatment Health Maintenance Due Date Last Done Comments BREAST CANCER SCREENING 1957 COLON CANCER SCREENING 1957 COLONOSCOPY CERVICAL CANCER SCREENING 1978 PAP ONLY (Age 21-65) INFLUENZA VACCINE (#1) 2019 LIPID PANEL 06/20/2020 06/20/2015 Implants Device Identifier Shelf Expiration Date Model / Serial / L ot Implanted Type Area Manufactur er [id number] 09/06/2020 [id number] / [id number] / [employer]-P Quad Mri Surescn Prcpta PACEMAKER/ MEDTRONI C: [id number] - [id number] ICD BI CARD Implanted: Qty: 1 on 05/03/2019 by VALVE RHY :PACING Marvin Samson MD at [facility] DEVICE SYS [facility] [id number] / [id number] / Medtronic MEDTRONIC Implanted: Qty: 1 on 05/03/2019 by aMrvin Samson MD at [facility] Description:LV LEAD Procedures Comments Procedure Name Priority Date/Time Associated Diag nosis ARRYTHMIA IMPLANT REPORT 05/16/2019 - SCAN 3:13 PM PROFESSOR OF MANAGEMENT RHYTHM STRIP - SCAN 05/05/2019 1:51 PM PROFESSOR OF MANAGEMENT CARDIAC CATH REPORT - 05/05/2019 SCAN 1:51 PM PROFESSOR OF MANAGEMENT ARRYTHMIA IMPLANT REPORT 05/05/2019 - SCAN 1:51 PM PROFESSOR OF MANAGEMENT ARRYTHMIA IMPLANT REPORT 05/05/2019 - SCAN 1:50 PM PROFESSOR OF MANAGEMENT TRANSFUSION SERVICE 05/04/2019 REPORT - SCAN 6:02 PM PROFESSOR OF MANAGEMENT BUN AND CREATININE Routine 05/04/2019 W/RATIO 5:02 AM PROFESSOR OF MANAGEMENT ELECTROLYTE PANEL Routine 05/04/2019 5:02 AM PROFESSOR OF MANAGEMENT CBC (HEMOGRAM ONLY) Routine 05/04/2019 5:02 AM PROFESSOR OF MANAGEMENT GLUCOSE Routine 05/04/2019 5:02 AM PROFESSOR OF MANAGEMENT ECG 12-LEAD Routine 05/04/2019 4:56 AM PROFESSOR OF MANAGEMENT XR CHEST 1 VIEW Routine 05/04/2019 PORTABLE/BEDSIDE 4:55 AM PROFESSOR OF MANAGEMENT ECG 12-LEAD Routine 05/03/2019 4:19 PM PROFESSOR OF MANAGEMENT Procedure Note - Interface, External Ris In - 05/03/2019 3:22 PM PROFESSOR OF MANAGEMENT Ventricula r Rate 77 BPM Atrial Rate 77 BPM P-R Interval 148 ms QRS Duration 170 ms Q-T Interval 486 ms QTC Calculatio n(Bazett) 549 ms P [place] 58 degrees R [place] -52 degrees T [place] 47 degrees Electroni c ventricula r pacemaker When compared with ECG of 0 09:18, Vent. rate has increased BY 12 BPM ECG 12-LEAD STAT 05/03/2019 4:19 PM PROFESSOR OF MANAGEMENT XR CHEST 1 VIEW Routine 05/03/2019 PORTABLE/BEDSIDE 3:31 PM PROFESSOR OF MANAGEMENT PACEMAKER GEN & LEADS - 05/03/2019 Familial card iomyopathy INSERTION W/ MAC 12:18 PM PROFESSOR OF MANAGEMENT (HCC) ANESTHESIA Atrioventricular block, (SING/DUAL/MULT) complete (HCC) Case Notes (2)CASE 6TOP/ [employer] [facility] Special Needs No anesthesia ECG 12-LEAD Routine 05/03/2019 9:18 AM PROFESSOR OF MANAGEMENT Procedure Note - Interface, External Ris In - 05/03/2019 8:26 AM PROFESSOR OF MANAGEMENT Ventricula r Rate 65 BPM Atrial Rate 65 BPM P-R Interval 216 ms QRS Duration 182 ms Q-T Interval 502 ms QTC Calculatio n(Bazett) 522 ms P [place] 45 degrees R [place] -70 degrees T [place] 97 degrees Sinus rhythm with 1st degree A-V block Left axis deviation Left ventricula r hypertroph y with QRS widening and repolariza tion abnormalit y Possible Lateral infarct , age undetermin ed Abnormal ECG No previous ECGs available ECG 12-LEAD Routine 05/03/2019 9:18 AM PROFESSOR OF MANAGEMENT ABORH, MANUAL STAT 05/03/2019 9:12 AM PROFESSOR OF MANAGEMENT CBC W/PLT COUNT & AUTO STAT 05/03/2019 DIFFERENTIAL 8:55 AM PROFESSOR OF MANAGEMENT TYPE AND SCREEN, Routine 05/03/2019 AUTOMATED 8:55 AM PROFESSOR OF MANAGEMENT HEPATIC FUNCTION PANEL STAT 05/03/2019 8:55 AM PROFESSOR OF MANAGEMENT COMPREHENSIVE METABOLIC STAT 05/03/2019 PANEL 8:55 AM PROFESSOR OF MANAGEMENT CBC W/PLT COUNT & AUTO STAT 05/03/2019 DIFFERENTIAL 8:55 AM PROFESSOR OF MANAGEMENT APTT STAT 05/03/2019 8:55 AM PROFESSOR OF MANAGEMENT after 03/22/2019 Results * ARRYTHMIA IMPLANT REPORT - SCAN (05/16/2019 3:13 PM PROFESSOR OF MANAGEMENT) Only the most recent of 3 results within the time period is included. Narrative Performed At This result has an attachment that is n ot available. * RHYTHM STRIP - SCAN (05/05/2019 1:51 PM PROFESSOR OF MANAGEMENT) Narrative Performed At This result has an attachment that is n ot available. * CARDIAC CATH REPORT - SCAN (05/05/2019 1:51 PM PROFESSOR OF MANAGEMENT) Narrative Performed At This result has an attachment that is n ot available. * TRANSFUSION SERVICE REPORT - SCAN (05/04/2019 6:02 PM PROFESSOR OF MANAGEMENT) Narrative Performed At This result has an attachment that is n ot available. * BUN and Creatinine (05/04/2019 5:02 AM PROFESSOR OF MANAGEMENT) BUN 14 7 - 21 mg/dL [facility] Creatinine 0.63 0.57 - 1.25 mg/dL [facility] EGFR 96Comment: ESTIMATED GFR IS mL/min/1.[address] [facility] NOT ACCURATE CREATININE [facility] CLEARANCE IN PREDICTING [facility] GLOMERULAR FILTRATION RATE. ESTIMATED GFR IS NOT APPLICABLE FOR DIALYSIS PATIENTS. Specimen Blood - Entire right upper arm (body structure) Narrative Performed At Specimen slightly icteric [facility] Performing Organization Address City/[facility] Ph one Number [address] [facility] * CBC (Hemogram only) (05/04/2019 5:02 AM PROFESSOR OF MANAGEMENT) WBC 5.0 3.5 - 10.5 K/L [facility] RBC 3.98 3.93 - 5.22 M/L [facility] Hemoglobin 11.9 11.2 - 15.7 GM/DL [facility] Hematocrit 35.3 34.1 - 44.9 % [facility] MCV 88.7 79.4 - 94.8 fL [facility] MCH 29.9 25.6 - 32.2 pg [facility] MCHC 33.7 32.2 - 35.5 GM/DL [facility] RDW 13.2 11.7 - 14.4 % [facility] Platelets 114 (L) 150 - 450 K/CU MM [facility] MPV 10.9 9.4 - 12.3 fL [facility] nRBC 0 0 - 0 /100 WBC [facility] Specimen Blood - Entire right upper arm (body structure) Performing Organization Address City/[facility] Ph one Number [address] [facility] * Glucose (05/04/2019 5:02 AM PROFESSOR OF MANAGEMENT) Glucose 88 70 - 105 mg/dL [facility] Specimen Blood - Entire right upper arm (body structure) Performing Organization Address City/[facility] Ph one Number [address] [facility] * Electrolytes (05/04/2019 5:02 AM PROFESSOR OF MANAGEMENT) Sodium 141 136 - 145 meq/L [facility] Potassium 3.4 (L) 3.5 - 5.1 meq/L [facility] Chloride 111 (H) 98 - 107 meq/L [facility] CO2 25 22 - 29 meq/L [facility] Specimen Blood - Entire right upper arm (body structure) Performing Organization Address [facility] one Number [facility] [address] [place], [place] [address] [facility] * EKG 12 lead (05/04/2019 4:56 AM PROFESSOR OF MANAGEMENT) Only the most recent of 3 results within the time period is included. Specimen Narrative Performed At Ventricular Rate 63 BPM GE [facility] Atrial Rate 63 BPM P-R Interval 146 ms QRS Duration 168 ms Q-T Interval 492 ms QTC Calculation(Bazett) 503 ms P [place] 60 degrees R [place] -44 degrees T [place] 30 degrees Atrial-sensed ventricular-paced rhythm Abnormal ECG When compared with ECG of 03-MAY-2019 1 6:19, Previous ECG has undetermined rhythm, n eeds review Confirmed by MD Arita Roberto ([id number]) on 05/04/2019 1:39:47 PM Procedure Note Interface, External Ris In - 05/04/2019 1:39 PM PROFESSOR OF MANAGEMENT Ventricular Rate 63 BPM Atrial Rate 63 BPM P-R Interval 146 ms QRS Duration 168 ms Q-T Interval 492 ms QTC Calculation(Bazett) 503 ms P [place] 60 degrees R [place] -44 degrees T [place] 30 degrees Atrial-sensed ventricular-paced rhythm Abnormal ECG When compared with ECG of 03-MAY-2019 16:19, Previous ECG has undetermined rhythm, needs review Confirmed by MD Arita Roberto ([id number]) on 05/04/2019 1:39:47 PM Performing Organization Address [facility] one Number GE MUSE * XR chest 1 view portable / bedside (05/04/2019 4:55 AM PROFESSOR OF MANAGEMENT) Only the most recent of 2 results within the time period is included. Specimen Narrative Performed At FINAL REPORT GE RIS RAD, CHEST, 1 VIEW, NON DEPT INDICATION: post device implant COMPARISON: Prior day's exam FINDINGS: Portable frontal view of the chest. IMPRESSION: Support Lines: Pacer device. Lungs and pleura: Lungs are predominant ly clear No pneumothorax. Heart and mediastinum: Stable contours. Additional findings: None. Signed: Adrienne Sauer MD Report Verified Date/Time: 05/04/2019 19:46:52 Reading Location: [address] Neuro Re ading Room Procedure Note Interface, External Ris In - 05/04/2019 7:48 PM PROFESSOR OF MANAGEMENT FINAL REPORT RAD, CHEST, 1 VIEW, NON DEPT INDICATION: post device implant COMPARISON: Prior day's exam FINDINGS: Portable frontal view of the chest. IMPRESSION: Support Lines: Pacer device. Lungs and pleura: Lungs are predominantly clear No pneumothorax. Heart and mediastinum: Stable contours. Additional findings: None. Signed: Adrienne Sauer MD Report Verified Date/Time: 05/04/2019 19:46:52 Reading Location: [address] Neuro Reading Room Performing Organization Address City/[facility] Ph one Number GE RIS * ABORH, manual (05/03/2019 9:12 AM PROFESSOR OF MANAGEMENT) ABO Grouping O [facility] Rh Factor POS [facility] Specimen Blood Performing Organization Address [facility] Ph one Number [id number] [place] [address] * Type and screen, automated (05/03/2019 8:55 AM PROFESSOR OF MANAGEMENT) ABO/RH O POSITIVE [facility] Ab Scrn NEGATIVE [facility] Specimen Blood Performing Organization Address [facility] Ph one [id number] [place] [address] * CBC with platelet count + automated diff (05/03/2019 8:55 AM PROFESSOR OF MANAGEMENT) WBC 3.6 3.5 - 10.5 K/L [facility] RBC 3.85 (L) 3.93 - 5.22 M/L [facility] Hemoglobin 11.7 11.2 - 15.7 GM/DL [facility] Hematocrit 34.1 34.1 - 44.9 % [facility] MCV 88.6 79.4 - 94.8 fL [facility] MCH 30.4 25.6 - 32.2 pg [facility] MCHC 34.3 32.2 - 35.5 GM/DL [facility] RDW 13.0 11.7 - 14.4 % [facility] Platelets 111 (L) 150 - 450 K/CU MM [facility] MPV 10.7 9.4 - 12.3 fL [facility] nRBC 0 0 - 0 /100 WBC [facility] % Neutros 35 % [facility] % Lymphs 46 % [facility] % Monos 11 % [facility] % Eos 6 % [facility] % Baso 1 % [facility] # Neutros 1.28 (L) 1.56 - 6.13 K/L [facility] # Lymphs 1.68 1.18 - 3.74 K/L [facility] # Monos 0.41 (H) 0.24 - 0.36 K/L [facility] # Eos 0.22 0.04 - 0.36 K/L [facility] # Baso 0.03 0.01 - 0.08 K/L [facility] Immature 0 0 - 1 % [facility] Specimen Blood Performing Organization Address City/[facility] Ph one Number [place] [address] [facility] * aPTT (05/03/2019 8:55 AM PROFESSOR OF MANAGEMENT) PTT 28.1 22.5 - 36.[address] [facility] Specimen Blood Performing Organization Address City/[facility] one Number [address] [facility] * Hepatic function panel (05/03/2019 8:55 AM PROFESSOR OF MANAGEMENT) Protein, Total 6.3 6.0 - 8.3 gm/dL [facility] Albumin 3.8 3.5 - 5.0 g/dL [facility] Total Bilirubin 1.4 (H) 0.2 - 1.2 mg/dL [facility] Bilirubin, 0.6 (H) 0.1 - 0.5 mg/dL [facility] Direct [facility] Alkaline 88 40 - 150 U/L [facility] AST 31 5 - 34 U/L [facility] ALT 35 6 - 55 U/L [facility] Specimen Blood Performing Organization Address City/[facility] one Number [place] [address] [facility] * Comprehensive metabolic panel (05/03/2019 8:55 AM PROFESSOR OF MANAGEMENT) Protein, Total 6.3 6.0 - 8.3 gm/dL [facility] Albumin 3.8 3.5 - 5.0 g/dL [facility] Alkaline 88 40 - 150 U/L [facility] Phosphatase [facility] Total Bilirubin 1.4 (H) 0.2 - 1.2 mg/dL [facility] Sodium 142 136 - 145 meq/L [facility] Potassium 3.4 (L) 3.5 - 5.1 meq/L [facility] Chloride 112 (H) 98 - 107 meq/L [facility] CO2 25 22 - 29 meq/L [facility] BUN 16 7 - 21 mg/dL [facility] Creatinine 0.58 0.57 - 1.25 mg/dL [facility] Glucose 94 70 - 105 mg/dL [facility] Calcium 8.5 8.4 - 10.2 mg/dL [facility] AST 31 5 - 34 U/L [facility] ALT 35 6 - 55 U/L [facility] EGFR 106Comment: ESTIMATED GFR IS mL/min/1.[address] [facility] NOT ACCURATE CREATININE [facility] CLEARANCE IN PREDICTING [facility] GLOMERULAR FILTRATION RATE. ESTIMATED GFR IS NOT APPLICABLE FOR DIALYSIS PATIENTS. Specimen Blood Performing Organization Address City/State/Zipcode Ph one Number [address] [facility] after 03/22/2019 Insurance Type Payer Benefit Subscriber ID Effective Phone Address Plan / Dates Group BLUE CROSS/BLUE SHIELD BCBS ADV [id number] 2018-P [address] HMO [id number] [place] [address] Advance Directives For more information, please contact: [phone] Date Inactivated Comments Code Status Date Activated 05/04/2019 12:37 PM Full Code 05/03/2019 8:04 AM This code status was determined by: Patient
--- OUTSIDE RECORDS SUMMARY | 2020-03-22 12:17 | XMS REPORT | Clinical Summary ---
Author Author [employer] Organization [employer] Address Unknown Phone Unavailable Care Team Providers Care Retail Sales Teammate Name Role Phone Asked, No Pcp PCP Unavailable Allergies No Known Active Allergies Medications End Date Status Medication Sig Dispensed Refills Start Date Active hydroCHLOROthiazide 3 (HYDRODIURIL) 12.5 MG 9 tablet Active Problems No known active problems Encounters Care Team Description Date Type Specialty Kermit Blevins MD PhD AV block 05/01/2019 Hospital Procedural Cardiolo gy Encounter after 03/22/2019 Surgical History Surgery Date Site/Laterality Comments INSERT / REPLACE / REMOVE PACEMAKER COLONOSCOPY 08/16/2018 N/A Procedure: COLO NOSCOPY; Surgeon: Homar Miller MD; Location: [facility]; Service: Gastroenterology; Laterality: N/A; Medical History Medical History Date Comments Heart block pacemaker Kidney stone Social History Date Tobacco Use Types Packs/Day Years Used Never Smoker Smokeless Tobacco: Never Used Drinks/Week oz/Week Comments Alcohol Use No Alcohol Habits Answer Date Recorded How often do you have a drink containing alcohol? Never 08/15/2018 How many drinks containing alcohol do you [...] CANCER SCREENING 1978 BREAST CANCER SCREENING 11/23/2007 COLONOSCOPY SCREENING 11/23/2007 SHINGLES VACCINES (#1) 11/23/2007 INFLUENZA VACCINE 11/25/2019 Results Not on fileafter 03/22/2019 Insurance Type Payer Benefit Subscriber ID Effective Phone Address Plan / Dates Group Exchange BCBS EXCHANGE BLUE [id number] 2017-P ADVANTAGE resent HMO EXCH [id number] Advance Directives For more information, please contact: [phone] Patient Toe Stripper Explanation Type Date Recorded Advance Directives, 08/16/2018 6:22 AM Living Will and Medical Power of Ship Design Teacher
--- OUTSIDE RECORDS SUMMARY | 2020-03-22 12:17 | XMS REPORT | Continuity of Care Document ---
Author Author [facility] t Organization [facility] Address [address] [place] [address] Phone Unavailable Care Team Providers Care Director Of Safety Name Role Phone AMY BUSTAMANTE, ROMA PCP ZEINA OAKES Attphys Unavailable Chapin BUSTAMANTE, Lc Wong Attphys Carlos BUSTAMANTE, Randy Attphys LC DUFFY Attphys Unavailable Gen BUSTAMANTE PhD, S[employer] Attphys Kimmy BUSTAMANTE, Marcel Attphys Connie BRICE Attphys Unavailable LC DUFFY Admphys Unavailable Payers Payer Name Policy Type Policy Number Effective Date Expiration Date [facility] BLUE CROSS/BLUE SHIELDBCBS ADV HMO [id number], [place] [address] [id number] 2018 00:00:00 [facility] BCBS EXCHANGEBLUE ADVANTAGE HMO [id number] 2017-Pre sentExchange [id number] 2017 00:00:00 [facility] Blue Cross Exchange [id number] 2017 00:00:00 [facility] Problems Condition Name Condition Details Condition Category Status Onset Date Resolution Date Last Treatment Date Treating Clinician Comments Source AV block AV block Disease Active 2019-05-03 00:00:00 [facility] Allergies, Adverse Reactions, Alerts This patient has no known allergies or adverse reactions. Social History Social Habit Start Date Stop Date Quantity Comments Source History SDOH Alcohol Std Drinks [facility] History SDOH Alcohol Binge [facility] Sex Assigned At [facility] Tobacco use and exposure 2019-05-04 00:00:00 2019-05-04 00:00:00 Bhakti moreno used [facility] Alcohol intake 2019-05-04 00:00:00 2019-05-04 00:00:00 Current non-drinker of alcohol (finding) [facility] Shweta moreno History SDOH Alcohol Frequency 2019-05-03 00:00:00 2019-05-03 00:00:0 0 1 [facility] Smoking Status Start Date Stop Date Source Never smoker [facility] Medications Ordered Medication Name Filled Medication Name Start Date Stop Da te Current Medication? Ordering Clinician Indication Dosage Frequency Signature (SIG) Comments Components Source hydroCHLOROthiazide (MICROZIDE) 12.5 mg capsule 2019-05-04 10:37 :42 Yes 12.5mg Take 12.5 mg by mouth as needed (states for kidney sto ajith) . [facility] mINOCYCLine (MINOCIN,DYNACIN) 100 MG capsule 00:00:00 2019-05-14 23:59:00 No 100mg Take 1 capsule (100 mg total) by mouth every 12 (twelve) hours for 10 days. [facility] potassium chloride (KLOR-CON) 10 MEQ CR tablet 2 16:06:11 2019-05-03 00:00:00 No 10meq Q.5D Take 10 mEq by mouth 2 (two) ti mes daily. [facility] hydroCHLOROthiazide (HYDRODIURIL) 12.5 MG tablet 2018-07-20 00:00:00 Yes Farhad Mathews ist Vital Signs Vital Name Observation Time Observation Value Comments Source Systolic blood pressure 2019-05-04 08:46:00 142 mm[Hg] [facility] Diastolic blood pressure 2019-05-04 08:46:00 68 mm[Hg] [facility] Heart rate 2019-05-04 08:46:00 65 /min [facility] Respiratory rate 2019-05-04 08:46:00 20 /min [facility] Oxygen saturation in Arterial blood by Pulse oximetry 05-04 08:46:00 97 /min [facility] Body temperature 2019-05-04 07:29:00 36.78 Cayla [facility] Body height 2019-05-03 07:25:00 165.1 cm [facility] Body weight 2019-05-03 07:25:00 71 kg [facility] BMI 2019-05-03 07:25:00 26.05 kg/m2 [facility] Procedures Procedure Date / Time Performed Performing Clinician Catrina e ARRYTHMIA IMPLANT REPORT - SCAN 2019-05-16 15:13:10 Provider, De fault Scanning [facility] RHYTHM STRIP - SCAN 2019-05-05 13:51:06 Provider, Default Scanni ng [facility] CARDIAC CATH REPORT - SCAN 2019-05-05 13:51:02 Provider, Default Scanning [facility] ARRYTHMIA IMPLANT REPORT - SCAN 2019-05-05 13:51:00 Provider, De fault Scanning [facility] ARRYTHMIA IMPLANT REPORT - SCAN 2019-05-05 13:50:57 Provider, De fault Scanning [facility] TRANSFUSION SERVICE REPORT - SCAN 2019-05-04 18:02:23 Provid er, Default Scanning [facility] GLUCOSE 2019-05-04 05:02:00 [place] [facility] CBC (HEMOGRAM ONLY) 2019-05-04 05:02:00 [place] [facility] ELECTROLYTE PANEL 2019-05-04 05:02:00 [facility] BUN AND CREATININE W/RATIO 2019-05-04 05:02:00 [facility] ECG 12-LEAD 2019-05-04 04:56:33 [facility] XR CHEST 1 VIEW PORTABLE/BEDSIDE 2019-05-04 04:55:00 Reema Banks Chaparro [facility] ECG 12-LEAD 2019-05-03 16:19:03 Unknown, Hl7 Doctor [facility] XR CHEST 1 VIEW PORTABLE/BEDSIDE 2019-05-03 15:31:00 Reema Banks Chaparro [facility] PACEMAKER GEN & LEADS - INSERTION W/ MAC ANESTHESIA (S ING/DUAL/MULT) 2019-05-03 12:18:00 [facility]AD 2019-05-03 09:18:38 Unknown, Hl7 Doctor [facility] ABORH, MANUAL 2019-05-03 09:12:00 Maki Priest [facility] APTT 2019-05-03 08:55:00 Angelomarifer [facility] COMPREHENSIVE METABOLIC PANEL 2019-05-03 08:55:00 [facility] HEPATIC FUNCTION PANEL 2019-05-03 08:55:00 [facility] TYPE AND SCREEN, AUTOMATED 2019-05-03 08:55:00 [place] [facility] CBC W/PLT COUNT & AUTO DIFFERENTIAL 2019-05-03 08:55:00 Chapin [facility] Plan of Care Planned Activity Planned Date Details Comments Source Future Scheduled Test 2020-06-20 00:00:00 Lipid panel (proce dure) [code = 81291580] [facility] Test 2019-12-26 00:00:00 INFLUENZA VACCINE (#1) [code = INFLUENZA VACCINE (#1)] [facility] Future Scheduled Test 2019-11-25 00:00:00 INFLUENZA VACCINE [code = INFLUENZA VACCINE] [facility] Future Scheduled Test 2007-11-23 00:00:00 BREAST CANCER SCRE ENING [code = BREAST CANCER SCREENING] [facility] Future Scheduled Test 2007-11-23 00:00:00 COLONOSCOPY SCREEN ING [code = COLONOSCOPY SCREENING] [facility] Future Scheduled Test 2007-11-23 00:00:00 SHINGLES VACCINES (#1) [code = SHINGLES VACCINES (#1)] [facility] Future Scheduled Test 1978 00:00:00 Screening for violeta gnant neoplasm of cervix (procedure) [code = 531173236] [facility] Future Scheduled Test 1978 00:00:00 Screening for violeta gnant neoplasm of cervix (procedure) [code = 035835363] [facility] Future Scheduled Test 1957 00:00:00 Screening for violeta gnant neoplasm of breast (procedure) [code = 872488606] [facility] Future Scheduled Test 1957 00:00:00 Screening for violeta gnant neoplasm of colon (procedure) [code = 654220407] [facility] Encounters Start Date/Time End Date/Time Encounter Type Admission Type [facility] Care Department Encounter ID Source 2019-05-01 00:00:00 2019-05-01 00:00:00 Outpatient JORDYN PETTIT [facility] [id number] [facility] 2019-01-30 00:00:00 2019-01-30 00:00:00 Outpatient JORDYN PETTIT [facility] [id number] [facility] 2019-01-30 00:00:00 2019-01-30 00:00:00 [facility] [id number] [facility] 2018-02-04 10:59:00 2018-02-04 15:58:00 Departed Emergency Room 1 ROMARUTJereMARY CARMEN [facility] [id number] [facility] Results Test Description Test Time Test Comments Results Result Comments Source CT ABDOMEN/PELVIS WO 2020-03-01 10:30:00 [facility] 1955 Sex: F [facility] [address] [address] Patient Name: CHERYL VILLAFUERTE MR #: [id number] : 1955 Age/Sex: 64/F Req #: [id number] Adm Physician: Ordered by: ZEINA OAKES MD Report #: [id number] Location: CT Room/Bed: Procedure: [id number] CT/CT ABDOMEN/PELVIS WO Exam Date: 03/01/20 Exam Time: 1012 REPORT STATUS: Signed EXAM: CT Abdomen and Pelvis WITHOUT intravenous contrast INDICATION: Renal calculus COMPARISON: KUB 02/02/2020, CT abdomen and pelvis 02/04/2018 TECHNIQUE: Abdomen and pelvis were scanned utilizing a multidetector helical scanner from the lung base to the pubic symphysis without administration of IV contrast. Coronal and sagittal reformations were obtained. IV CONTRAST: None ORAL CONTRAST: Water COMPLICATIONS: None RADIATION DOSE: Total DLP: 284 mGy*cm Dose modulation, iterative reconstruction, and/or weight based adjustment of the mA/kV was utilized to reduce the radiation dose to as low as reasonably achievable. FINDINGS: LOWER THORAX: Normal. HEPATOBILIARY: Right hepatic 5.2 cm cyst. Additional subcentimeter hepatic dome hypodensity is too small to adequately characterize but likely also represents a cyst. No additional focal liver lesions. Unremarkable gallbladder. SPLEEN: No splenomegaly. PANCREAS: No focal masses or ductal dilatation. ADRENALS: No adrenal nodules. KIDNEYS/URETERS: 7 mm left upper pole renal calculus and 5 mm right upper pole renal calculus. No hydronephrosis or hydroureter. PELVIC ORGANS/BLADDER: Unremarkable. PERITONEUM / RETROPERITONEUM: No free air or fluid. LYMPH NODES: No lymphadenopathy. VESSELS: Mild scattered atherosclerotic calcifications of the nonaneurysmal abdominal aorta and major branches. GI TRACT: No distention or wall thickening. BONES AND SOFT TISSUES: Unremarkable. IMPRESSION: 7 mm left upper pole and 5 mm right upper pole renal calculi. No hydronephrosis or hydroureter. Signed by: Hannah Bowman MD on 03/01/2020 10:46 AM Dictated By: HANNAH BOWMAN MD 104 Transcribed By: EMETERIO on 03/01/20 1046 COPY TO: ZEINA OAKES MD ABDOMEN-1VIEW (KUB) 2020-02-02 16:25:[address] [address] Patient Name: CHERYL VILLAFUERTE MR #: [id number] : 1955 Age/Sex: 64/F Req #: [id number] Adm Physician: Ordered by: ZEINA OAKES MD Report #: [id number] Location: [facility] Room/Bed: Procedure: [id number] DX/ABDOMEN-1VIEW (KUB) Exam Date: 02/02/20 Exam Time: 1445 REPORT STATUS: Signed Exam: KUB - 2 views Indication: Renal calculus Comparison: Multiple prior KUBs, most recently 09/29/2018 Findings: Left upper pole renal calculus measures up to 6 mm, slightly increased compared to the prior KUB of 09/29/2018. No additional graphically apparent urinary calculi. Nonobstructive bowel gas pattern. No free air. No acute osseous injury. Partially visualized pacemaker leads. Impression: Left upper pole renal calculus measures up to 6 mm, slightly increased compared to prior KUB of 09/29/2018. Signed by: Hannah Bowman MD on 02/02/2020 4:26 PM Dictated By: HANNAH BOWMAN MD 25 Transcribed By: EMETERIO on 02/02/201625 COPY TO: ZEINA OAKES MD RAD, CHEST, 1 VIEW, NON DEPT 2019-05-04 19:46:00 Reason for exam:->post device implantShould this be performed at the bedside?->Yes FINAL REPORT RAD, CHEST, 1 VIEW, NON DEPT INDICATION: post device implant COMPARISON: Prior day's exam FINDINGS: Portable frontal view of the chest. IMPRESSION: Support Lines: Pacer device. Lungs and pleura: Lungs are predominantly clear No pneumothorax.Heart and mediastinum: Stable contours. Additional findings: None. Signed: Bibi Cisneros Verified Date/Time: 05/04/2019 19:46:52 Reading Location: [address] Neuro Reading Room chest 1 view portable / bedside 2019-05-04 19:46:00 Interface, External Ris In - 05/04/2019 7:48 PM CSTFINAL REPORT RAD, CHEST, 1 VIEW, NON DEPT INDICATION: post device implant COMPARISON: Prior day's exam FINDINGS: Portable frontal view of the chest. IMPRESSION: Support Lines: Pacer device. Lungs and pleura: Lungs are predominantly clear No pneumothorax.Heart and mediastinum: Stable contours. Additional findings: None. Signed: Bibi Cisneros Verified Date/Time: 05/04/2019 19:46:52 Reading Location: [facility] C013 Neuro Reading Room [facility] EKG 12 lead 2019-05-04 13:39:53 Interface, E xternal Ris In - 05/04/2019 1:39 PM CSTVentricular Rate 63 BPMAtrial Rate 63 BPMP-R Interval 146 msQRS Duration 168 msQ-T Interval 492 msQTC Calculation(Bazett) 503 msP [place] 60 degreesR [place] - 44 degreesT [place] 30 degreesAtrial-sensed ventricular-paced rhythmAbnormal ECGWhen compared with ECG of 03-MAY-2019 16:19,Previous ECG has undetermined rhythm, needs reviewConfirmed by MD Arita Roberto ([id number]) on 05/04/2019 1:39:47 PM [facility] Electrolytes 2019-05-04 06:19:00 Test Item Sodium (test code = 2951-2) 141 meq/L 136-145 Potassium (test code = 2823-3) 3.4 meq/L 3.5-5.1 L Chloride (test code = 2075-0) 111 meq/L 98-107 H CO2 (test code = 2027-9) 25 meq/L 22-29 Lab Interpretation (test code = 61134-8) Abnormal [facility] 06:19:00* Test Item Value Reference Range Interpretation Comments Glucose (test code = 2345-7) 88 mg/dL 70-105 Lab Interpretation (test code = 55213-3) Normal [facility] Center[facility] and [id number] 06:19:00* Test Item Value Reference Range Interpretation Comments BUN (test code = 3094-0) 14 mg/dL 7-21 Creatinine (test code = 2160-0) 0.63 mg/dL 0.57-1.25 EGFR (test code = 71725-2) 96 mL/min/1.73 sq m ESTIMATED GFR IS NOT ACCURATE CREATININE CLEARANCE IN PREDICTING GLOMERULAR FILTRATION RATE. ESTIMATED GFR IS NOT APPLICABLE FOR DIALYSIS PATIENTS. JODEE (test code = JODEE) Specimen slightly icteric [facility]TES2020-01-09 06:19:00* Test Item Value Reference Range Interpretation Comments SODIUM (BEAKER) (test code = 381) 141 meq/L 136-145 POTASSIUM (BEAKER) (test code = 379) 3.4 meq/L 3.5-5.1 L CHLORIDE (BEAKER) (test code = 382) 111 meq/L 98-107 H CO2 (BEAKER) (test code = 355) 25 meq/L 22-29 [id number] 06:19:00* Test Item Value Reference Range Interpretation Comments GLUCOSE RANDOM (BEAKER) (test code = 652) 88 mg/dL 70-105 BUN AND [id number] 06:19:00* Test Item Value Reference Range Interpretation Comments BLOOD UREA NITROGEN (BEAKER) (test code = 354) 14 mg/dL 7-21 CREATININE (BEAKER) (test code = 358) 0.63 mg/dL 0.57-1.25 EGFR (BEAKER) (test code = 1092) 96 mL/min/1.73 sq m ESTIMATED GFR IS NOT ACCURATE CREATININE CLEARANCE IN PREDICTING GLOMERULAR FILTRATION RATE. ESTIMATED GFR IS NOT APPLICABLE FOR DIALYSIS PATIENTS. Specimen slightly ictericCBC (Hemogram only)2019-05-04 05:27:00* Test Item Value Reference Range Interpretation Comments WBC (test code = 6690-2) 5.0 3.5- 10.5 K/L RBC (test code = 789-8) 3.98 3.93- 5.22 M/L MCHC (test code = 786-4) 33.7 32.2- 35.5 GM/DL Hematocrit (test code = 4544-3) 35.3 % 34.1-44.9 MCV (test code = 787-2) 88.7 fL 79.4-94.8 MCH (test code = 785-6) 29.9 pg 25.6-32.2 RDW (test code = 788-0) 13.2 % 11.7-14.4 Platelets (test code = 777-3) 114 150- 450 K/CU MM L MPV (test code = 09522-9) 10.9 fL 9.4-12.3 nRBC (test code = 413) 0 0- 0 /100 WBC Lab Interpretation (test code = 85920-1) [facility] 05:27:00* Test Item Value Reference Range Interpretation Comments WHITE BLOOD CELL COUNT (BEAKER) (test code = 775) 5.0 K/ L 3.5- 10.5 RED BLOOD CELL COUNT (BEAKER) (test code = 761) 3.98 M/ L 3.93-5 .22 HEMOGLOBIN (BEAKER) (test code = 410) 11.9 GM/DL 11.2-15.7 HEMATOCRIT (BEAKER) (test code = 411) 35.3 % 34.1-44.9 MEAN CORPUSCULAR VOLUME (BEAKER) (test code = 753) 88.7 fL 79. 4-94.8 MEAN CORPUSCULAR HEMOGLOBIN (BEAKER) (test code = 751) 29.9 pg 25.6-32.2 MEAN CORPUSCULAR HEMOGLOBIN CONC (BEAKER) (test code = 752) 33.7 GM/DL 32.2-35.5 RED CELL DISTRIBUTION WIDTH (BEAKER) (test code = 412) 13.2 % 11.7-14.4 PLATELET COUNT (BEAKER) (test code = 756) 114 K/CU MM 150-450 L MEAN PLATELET VOLUME (BEAKER) (test code = 754) 10.9 fL 9.4-12 .3 NUCLEATED RED BLOOD CELLS (BEAKER) (test code = 413) 0 /100 WBC 0 -0 RAD, CHEST, 1 VIEW, NON [id number] 15:46:00Reason for exam:->post device implantShould this be performed at the bedside?->YesFINAL REPORT RAD, CHEST, 1 VIEW, NON DEPT INDICATION: post device implant COMPARISON: Prior day's exam FINDINGS: Portable frontal view of the chest. IMPRESSION: Support Lines: Pacer device. Lungs and pleura: Mild interstitial opacities. No liyah airspace edema. No pneumothorax.Heart and mediastinum: Stable contours. Stable surgical changes.Additional findings: None. Signed: Bibi Cisneros MDReport Verified Date/Time: 05/03/2019 15:46:18 Reading Loc ation: [facility] Reading Room Type and screen, [id number] 09:52:00* Test Item Value Reference Range Interpretation Comments ABO/RH AUTOMATED (BEAKER) (test code = 2260) O POSITIVE Ab Scrn (test code = 890-4) NEGATIVE [facility], [id number] 09:48:00* Test Item Value Reference Range Interpretation Comments ABO Grouping (test code = 2588) O Rh Factor (test code = 2589) POS [facility] [id number] 09:35:00* Test Item Value Reference Range Interpretation Comments Protein, Total (test code = 2885-2) 6.3 6.0- 8.3 gm/dL Albumin (test code = 67530-7) 3.8 g/dL 3.5-5 Alkaline Phosphatase (test code = 6768-6) 88 U/L 40-150 Total Bilirubin (test code = 1974-2) 1.4 mg/dL 0.2-1.2 H Sodium (test code = 2951-2) 142 meq/L 136-145 Potassium (test code = 2823-3) 3.4 meq/L 3.5-5.1 L Chloride (test code = 5-0) 112 meq/L 98-107 H CO2 (test code = 2027-9) 25 meq/L 22-29 BUN (test code = 3094-0) 16 mg/dL 7-21 Creatinine (test code = 2160-0) 0.58 mg/dL 0.57-1.25 Glucose (test code = 2345-7) 94 mg/dL 70-105 Calcium (test code = 24730-7) 8.5 mg/dL 8.4-10.2 AST (test code = 1920-8) 31 U/L 5-34 ALT (test code = 1742-6) 35 U/L 6-55 EGFR (test code = 54294-2) 106 mL/min/1.73 sq m ESTIMATED GFR IS NOT ACCURATE CREATININE CLEARANCE IN PREDICTING GLOMERULAR FILTRATION RATE. ESTIMATED GFR IS NOT APPLICABLE FOR DIALYSIS PATIENTS. Lab Interpretation (test code = 67189-2) Abnormal [facility] Center[facility]atic function [id number] 09:35:00* Test Item Value Reference Range Interpretation Comments Protein, Total (test code = 2885-2) 6.3 6.0- 8.3 gm/dL Albumin (test code = 62179-7) 3.8 g/dL 3.5-5 Total Bilirubin (test code = 1974-2) 1.4 mg/dL 0.2-1.2 H Bilirubin, Direct (test code = 1967-) 0.6 mg/dL 0.1-0.5 H Alkaline Phosphatase (test code = 6768-6) 88 U/L 40-150 AST (test code = 1920-8) 31 U/L 5-34 ALT (test code = 1742-6) 35 U/L 6-55 Lab Interpretation (test code = 01650-3) Abnormal [facility] [id number] 09:35:00* Test Item Value Reference Range Interpretation Comments TOTAL PROTEIN (BEAKER) (test code = 770) 6.3 gm/dL 6.0-8.3 ALBUMIN (BEAKER) (test code = 1145) 3.8 g/dL 3.5-5.0 BILIRUBIN TOTAL (BEAKER) (test code = 377) 1.4 mg/dL 0.2-1.2 H BILIRUBIN DIRECT (BEAKER) (test code = 706) 0.6 mg/dL 0.1-0.5 H ALKALINE PHOSPHATASE (BEAKER) (test code = 346) 88 U/L 40-150 AST (SGOT) (BEAKER) (test code = 353) 31 U/L 5-34 ALT (SGPT) (BEAKER) (test code = 347) 35 U/L 6-55 COMPREHENSIVE METABOLIC [id number] 09:35:00* Test Item Value Reference Range Interpretation Comments TOTAL PROTEIN (BEAKER) (test code = 770) 6.3 gm/dL 6.0-8.3 ALBUMIN (BEAKER) (test code = 1145) 3.8 g/dL 3.5-5.0 ALKALINE PHOSPHATASE (BEAKER) (test code = 346) 88 U/L 40-150 BILIRUBIN TOTAL (BEAKER) (test code = 377) 1.4 mg/dL 0.2-1.2 H SODIUM (BEAKER) (test code = 381) 142 meq/L 136-145 POTASSIUM (BEAKER) (test code = 379) 3.4 meq/L 3.5-5.1 L CHLORIDE (BEAKER) (test code = 382) 112 meq/L 98-107 H CO2 (BEAKER) (test code = 355) 25 meq/L 22-29 BLOOD UREA NITROGEN (BEAKER) (test code = 354) 16 mg/dL 7-21 CREATININE (BEAKER) (test code = 358) 0.58 mg/dL 0.57-1.25 GLUCOSE RANDOM (BEAKER) (test code = 652) 94 mg/dL 70-105 CALCIUM (BEAKER) (test code = 697) 8.5 mg/dL 8.4-10.2 AST (SGOT) (BEAKER) (test code = 353) 31 U/L 5-34 ALT (SGPT) (BEAKER) (test code = 347) 35 U/L 6-55 EGFR (BEAKER) (test code = 1092) 106 mL/min/1.73 sq m ESTIMATED GFR IS NOT ACCURATE CREATININE CLEARANCE IN PREDICTING GLOMERULAR FILTRATION RATE. ESTIMATED GFR IS NOT APPLICABLE FOR DIALYSIS PATIENTS. [id number] 09:18:00* Test Item Value Reference Range Interpretation Comments PTT (test code = 37833-5) 28.1 22.5- 36.0 seconds Lab Interpretation (test code = 77387-6) [facility] 09:18:00* Test Item Value Reference Range Interpretation Comments PARTIAL THROMBOPLASTIN TIME (BEAKER) (test code = 760) 28.1 seconds 22.5-36.0 CBC with platelet count + automated [id number] 09:11:00* Test Item Value Reference Range Interpretation Comments WBC (test code = 6690-2) 3.6 3.5- 10.5 K/L RBC (test code = 789-8) 3.85 3.93- 5.22 M/L L MCHC (test code = 786-4) 34.3 32.2- 35.5 GM/DL Hematocrit (test code = 4544-3) 34.1 % 34.1-44.9 MCV (test code = 787-2) 88.6 fL 79.4-94.8 MCH (test code = 785-6) 30.4 pg 25.6-32.2 RDW (test code = 788-0) 13.0 % 11.7-14.4 Platelets (test code = 777-3) 111 150- 450 K/CU MM L MPV (test code = 05270-6) 10.7 fL 9.4-12.3 nRBC (test code = 413) 0 0- 0 /100 WBC % Neutros (test code = 429) 35 % % Lymphs (test code = 430) 46 % % Monos (test code = 431) 11 % % Eos (test code = 432) 6 % % Baso (test code = 437) 1 % # Neutros (test code = 670) 1.28 1.56- 6.13 K/L L # Lymphs (test code = 414) 1.68 1.18- 3.74 K/L # Monos (test code = 415) 0.41 0.24- 0.36 K/L H # Eos (test code = 416) 0.22 0.04- 0.36 K/L # Baso (test code = 417) 0.03 0.01- 0.08 K/L Immature Granulocytes-Relative (test code = 2801) 0 % 0-1 Lab Interpretation (test code = 95929-6) Abnormal [facility] W/PLT COUNT & AUTO [id number] 09:11:00* Test Item Value Reference Range Interpretation Comments WHITE BLOOD CELL COUNT (BEAKER) (test code = 775) 3.6 K/ L 3.5- 10.5 RED BLOOD CELL COUNT (BEAKER) (test code = 761) 3.85 M/ L 3.93-5 .22 L HEMOGLOBIN (BEAKER) (test code = 410) 11.7 GM/DL 11.2-15.7 HEMATOCRIT (BEAKER) (test code = 411) 34.1 % 34.1-44.9 MEAN CORPUSCULAR VOLUME (BEAKER) (test code = 753) 88.6 fL 79. 4-94.8 MEAN CORPUSCULAR HEMOGLOBIN (BEAKER) (test code = 751) 30.4 pg 25.6-32.2 MEAN CORPUSCULAR HEMOGLOBIN CONC (BEAKER) (test code = 752) 34.3 GM/DL 32.2-35.5 RED CELL DISTRIBUTION WIDTH (BEAKER) (test code = 412) 13.0 % 11.7-14.4 PLATELET COUNT (BEAKER) (test code = 756) 111 K/CU MM 150-450 L MEAN PLATELET VOLUME (BEAKER) (test code = 754) 10.7 fL 9.4-12 .3 NUCLEATED RED BLOOD CELLS (BEAKER) (test code = 413) 0 /100 WBC 0 -0 NEUTROPHILS RELATIVE PERCENT (BEAKER) (test code = 429) 35 % LYMPHOCYTES RELATIVE PERCENT (BEAKER) (test code = 430) 46 % MONOCYTES RELATIVE PERCENT (BEAKER) (test code = 431) 11 % EOSINOPHILS RELATIVE PERCENT (BEAKER) (test code = 432) 6 % BASOPHILS RELATIVE PERCENT (BEAKER) (test code = 437) 1 % NEUTROPHILS ABSOLUTE COUNT (BEAKER) (test code = 670) 1.28 K/ L 1.56-6.13 L LYMPHOCYTES ABSOLUTE COUNT (BEAKER) (test code = 414) 1.68 K/ L 1.18-3.74 MONOCYTES ABSOLUTE COUNT (BEAKER) (test code = 415) 0.41 K/ L 0. 24-0.36 H EOSINOPHILS ABSOLUTE COUNT (BEAKER) (test code = 416) 0.22 K/ L 0.04-0.36 BASOPHILS ABSOLUTE COUNT (BEAKER) (test code = 417) 0.03 K/ L 0. 01-0.08 IMMATURE GRANULOCYTES-RELATIVE PERCENT (BEAKER) (test code = 2801) 0 % 0-1 ABDOMEN-1VIEW (KUB)2018-09-29 14:18:00 [place] [id number] Patient Name: CHERYL VILLAFUERTE MR #: [id number] : 1955 Age/Sex: 62/F Req #: [id number] Adm Physician: Ordered by: ZEINA OAKES MD Report #: [id number] Location: [facility] Room/Bed: Procedure: [id number] DX/ABDOMEN -1VIEW (KUB) Exam Date: 09/29/18 Exam Time: 1348 REPORT STATUS: Signed Exam: KUB - 2 views Clinical History: Renal stone. Comparison: KUB 06/24/2018. F indings: A 5 mm calcification projects over the left upper kidney. Bowel gas partially obscures visualization of the kidneys. No evidence of calcification overlying the expected course of the ureters. Nonobstructive bowel gas pattern . Moderate amount of stool in the colon. No acute osseous abnormality. Im pression: Likely 5 mm left upper pole renal stone. Signed by: Dr. Harrison Vela MD on 09/29/2018 2:21 PM Dictated By: HARRISON EVLA MD Electronically Si gned By: HARRISON VELA MD on 09/29/18 1421 Transcribed By: EMETERIO on 09/29/18 142 1 COPY TO: ZEINA OAKES MD ABDOMEN-1VIEW ([facility])2018-06-24 12:32:00 [place] [address] Patient Name: CHERYL VILLAFUERTE MR #: [id number] : 1955 Age/Sex: 62/F Req #: [id number] Adm Physician: Ordered by: ZEINA OAKES MD R eport #: [id number] Location: [facility] Room /Bed: Procedure: [id number] DX/ABDOMEN -1VIEW ([facility]) Exam Date: 06/24/18 Exam Time: 1120 REPORT STATUS: Signed EXAM: ABDOME N-1VIEW ([facility]) DATE: 06/24/2018 11:31 AM INDICATION: Kidney stone COMPARISON: [facility], 04/13/2018 FINDINGS: 2 supine views of the abdomen s how a normal distribution of air in the small and large bowel. Since prev ious exam bilateral ureteral stents have been removed. No discrete abnormal ca lcifications are projected on either kidney, along the expected path of IV ure ter or urinary bladder. However, in some areas small calcifications may be obs cured by overlying bone or bowel. Again noted is an intracardiac lead. No a cute bony abnormality. IMPRESSION: 1. No bowel dilatation or evidence for obstruction. 2. Interval removal of bilateral ureteral stents. Sig sonia by: Dr. Neal Almanzar M.D. on 06/24/2018 12:35 PM Dictated By: NEAL ALMANZAR MD 1235 Transcri bed By: EMETERIO on 06/24/18 1235 COPY TO: ZEINA OAKES MD ABDOMEN- 1VIEW ([facility])2018-04-13 10:25:00 [place] [address] Patient Name: CHERYL VILLAFUERTE MR #: [id number] : 1955 Age/Sex: 62/F Req #: [id number] Adm Physician: Ordered by: ZEINA OAKES MD Report #: [id number] Location: OR Room/Bed: Procedure: [id number] DX/ABDOMEN -1VIEW ([facility]) Exam Date: 04/13/18 Exam Time: 1000 REPORT STATUS: Signed EXAM: ABDOMEN- 1VIEW ([facility]) DATE: 04/13/2018 12:00 AM INDICATION: ,Preoperative, renal calculi Stents COMPARISON: 02/23/2018 FINDINGS: Bowel Gas Patte rn: Non-obstructive. Pneumoperitoneum: None. Suspicious Calcifications : Bilateral ureteral stents present. No distinct calcifications along stent. S tool and bowel gas obscures kidneys. Other: Right ventricular pacemaker laura d partially visualized. IMPRESSION: Bilateral ureteral stents. Sign ed by: Dr. Simone Matthews MD on 04/13/2018 10:26 AM Dictated By: SIMONE MCNEAL MD 1026 Transcri bed By: EMETERIO on 04/13/18 1026 COPY TO: ZEINA OAKES MD ABDOMEN- 1VIEW ([facility])2018-02-23 07:15:00 [place] [address] Patient Name: CHERYL VILLAFUERTE MR #: [id number] : 1955 Age/Sex: 62/F Req #: [id number] Adm Physician: Ordered by: ZEINA OAKES MD Report #: [id number] Location: OR Room/Bed: Procedure: [id number] DX/ABDOMEN -1VIEW ([facility]) Exam Date: 02/23/18 Exam Time: 0608 REPORT STATUS: Signed PROCEDURE: X-RAY ABDOMEN - [facility] COMPARISON: 02/10/2018. CT abdomen and pelvis withou t contrast 02/04/2018 INDICATIONS: PRE-OP CALCULUS OF KIDNEY FI NDINGS: 6 mm mid right ureteral calculus described on the comparison CT is not definitively visualized by plain radiography. 2 calcifications measuri ng up to 6 mm are identified projecting over the left renal shadow. [place] el gas pattern is nonobstructive. Regional skeletal structures are intact. CONCLUSION: Small left renal calculi as above. Right ureteral calculus described on the comparison CT is not identified by plain radiograp hy. Dictated by: Zay Lora M.D. on 02/23/2018 at 7:15 Electronicall y approved by: Zay Lora M.D. on 02/23/2018 at 7:15 Dictated B y: ZAY LORA MD 4 Transcribed By: ISABEL on 02/23/18714 COPY TO: ZEINA OAKES MD CHEST 2 [id number] 16:50:00 [place] [id number] [place] [address] Patient Name: CHERYL VILLAFUERTE MR #: [id number] : 1955 Age/Sex: 62/F Req #: [id number] Adm Physician: Ordered by: ZEINA OAKES MD Report #: [id number] Location: OR Room/Bed: Procedure: [id number] DX/ CHEST 2 VIEWS Exam Date: 02/21/18 Exam Time: 1635 REPORT STATUS: Signed EXAMINATI ON: PA and lateral views of the chest. COMPARISON: None CLINICAL HISTO RY: Preop exam. DISCUSSION: Lines/tubes: Left upper chest dual lead c ardiac device, with distal tips projecting in the right atrium and right ventr icle. Lungs: The lungs are well inflated and clear. There is no evidence o f pneumonia or pulmonary edema. Pleura: There is no pleural effusion or pneumothorax. Heart and mediastinum: Cardiomediastinal silhouette is borde rline enlarged. Pulmonary vasculature is normal. Bones and soft tissue s: No acute bony abnormalities. Degenerative changes in the thoracic spine IMPRESSION: No acute cardiopulmonary abnormalities. Sign ed by: Dr. Wojciech Mckeon M.D. on 02/21/2018 4:51 PM Dictated By: HERMINIA MCEKON MD 50 Tr anscribed By: EMETERIO on 02/21/181650 COPY TO: ZEINA OAKES MD ABDOMEN-1VIEW ([facility])2018-02-10 15:10:00 [place] [id number] [place], [place] [address] Patient Name: CHERYL VILLAFUERTE MR #: [id number] : 1955 Age/Sex: 62/F Req #: [id number] Adm Physician: Ordered by: ZEINA OAKES MD Report #: [id number] Location: [facility] Room/Bed: Procedure: [id number] DX/ ABDOMEN-1VIEW ([facility]) Exam Date: Exam Time: REPORT STATUS: Signed EXAM: ABDOMEN-1VIEW ([facility]) DATE: 02/10/2018 2:38 PM INDICATION: Kidney stones COMPAR BLAKE: 02/04/2018 CT FINDINGS: Bowel Gas Pattern: Significant stool lar merrill secures kidneys. No obstructive changes. Pneumoperitoneum: None. Suspicious Calcifications: None. Other: None. IMPRESSION: Signifi cant colonic stool obscures previously described ureteral/renal calculi. Si gned by: Dr. Simone Matthews MD on 02/10/2018 3:11 PM Dictated By: SIMONE VICKERS MD 10 Transcr ibed By: EMETERIO on 02/10/181510 COPY TO: ZEINA OAKES MD CT ABD/PEL WO [id number] 12:31:00 [facility] [address] [place], [place] [address] Patient Name: CHERYL VILLAFUERTE MR #: [id number] : 1955 Age/Sex: 62/F Req #: [id number] Adm Physician: Ordered by: MARY CARMEN BRICE MD Report #: [id number] Location: [facility] Room/Bed: Procedure: HOPD/CT ABD/PEL WO CONTR AST-HOPD Exam Date: 02/04/18 Exam Time: 1215 R EPORT STATUS: Signed EXAM: CT Abdomen and Pelvis WITHOUT contrast INDICAT ION: ovary has been removed. COMPARISON: None. TECHNIQUE: A bdomen and pelvis were scanned utilizing a multidetector helical scanner from the lung base to the pubic symphysis without administration of IV contrast. Ab sence of intravenous contrast decreases sensitivity for detection of focal les ions and vascular pathology. Coronal and sagittal reformations [...] the left lower lobe. LOWER THORAX: Unremarkable HEPATOBI LIARY: Few low-attenuation hepatic cysts with the largest measuring up to 3.9 cm on segment 7/8. No focal hepatic lesions. No biliary ductal dilation. GALLBLADDER: No radio-opaque stones or sludge. No wall thickening. SPLEE N: No splenomegaly. PANCREAS: No focal masses or ductal dilatation. ADRENALS: No adrenal nodules KIDNEYS/URETERS: 6 mm calcified stone in the mid right ureter at the level of L3 vertebral body results in mild hydrou reteronephrosis. There are additional few bilateral renal 1-4 mm calcified sto ajith, one on the right in the inferior pole on coronary image 54 and at least 5 on the left. No cystic or solid mass lesions. No stones. GI TRACT: No a bnormal distention, wall thickening, or evidence of bowel obstruction. A ppendix is surgically absent. PELVIC ORGANS/BLADDER: The urinary bladder ap pears unremarkable without calcified stones. The uterus is normal in size. The left ovary appears present. Right ovary is not visualized. LYMPH NODES: No lymphadenopathy. VESSELS: Unremarkable. PERITONEUM / RETROPERITONEU M: No free air or fluid. BONES: Unremarkable. SOFT TISSUES: Unremarkab le. IMPRESSION: 1. Mild obstructing 6 mm right mid ureteral stone. 2. Few bilateral 1 to 4 mm calcified renal stones. Signed by: Dr. Katiana Kinsey M.D. on 02/04/2018 12:39 PM Dictated By: KHLOE KINSEY MD 1239 COPY TO: MARY CARMEN BRICE MD
== END 2020-03-22 12:08 | disposition home or self-care (01) ==
LOC: FSED 11:56
DX: N39.0 Urinary tract infection, site not specified (principal); R31.9 Hematuria, unspecified; Z95.0 Presence of cardiac pacemaker
CPT/HCPCS: 81003; 87086; 87186; 99283

== ENCOUNTER → 2020-04-05 | Day surgery (SDC) | payer BC ==
[2020-04-02 10:10] LABS: BASOPHILS % 0.6 % (0.0-1.0); EOSINOPHILS # (AUTO) 0.3 (0.0-0.4); EOSINOPHILS % 8.8 % (0.0-6.0); HEMATOCRIT 38.9 % (34.2-44.1); HEMOGLOBIN 12.6 g/dL (12.0-16.0); LYMPHOCYTES # (AUTO) 1.3 (1.0-3.2); LYMPHOCYTES % 40.6 % (18.0-39.1); MEAN CORPUSCULAR HEMOGLOBIN 29.8 pg (28-32); MEAN CORPUSCULAR HGB CONC 32.4 g/dL (31-35); MONOCYTES # (AUTO) 0.3 (0.2-0.8); MONOCYTES % 9.4 % (4.4-11.3); NEUTROPHILS # (AUTO) 1.2 (2.1-6.9); NEUTROPHILS % 40.3 % (38.7-80.0); PLATELET COUNT 122 x10e3/uL (140-360); RED BLOOD COUNT 4.23 x10e6/uL (3.6-5.1); RED CELL DISTRIBUTION WIDTH 12.9 % (11.7-14.4)
[2020-04-02 10:34] LABS: ANION GAP 10.7 mmol/L (8-16); BLOOD UREA NITROGEN 14 mg/dL (7-26); BUN/CREATININE RATIO 21 (6-25); CALCIUM 8.8 mg/dL (8.4-10.2); CARBON DIOXIDE 29 mmol/L (22-29); CHLORIDE 108 mmol/L (98-107); CREATININE, SERUM 0.68 mg/dL (0.57-1.11); EST GLOMERULAR FILTRATION RATE > 60 ML/MIN (60-); GLUCOSE 110 mg/dL (74-118); POTASSIUM 3.7 mmol/L (3.5-5.1); SODIUM 144 mmol/L (136-145)
[~2020-04-05] MED LIST changes: +B&O 60MG R/S 60 MG SUPP PR ONE; +CEFTRIAXONE SOD 1 GM/NS 50 ML 50 ML IV ONE; +DEXAMETHASONE SOD PHOS INJ 4 MG/ML VIAL ONE; +IOPAMIDOL 300MG/ML 50ML INFUS..BTL IV ONE; +LIDOCAINE HCL 2% LOCAL INJ 5 ML SDV VIAL INJ ONE; +ONDANSETRON HCL INJ 2MG/ML 2ML 2 MG/ML VIAL ONE; +PROPOFOL IV EMULSION 10 MG/ML 20 ML VIAL ONE; +SEVOFLURANE INHAL SOLN 250 ML PEN BTL ONE
[2020-04-05 15:05] VITALS: BP 133/71
== END | disposition home or self-care (01) ==
LOC: OR 11:27
PROVIDERS: ATTEND Urology
DX: N20.0 Calculus of kidney (principal); N39.0 Urinary tract infection, site not specified; N81.10 Cystocele, unspecified; N81.6 Rectocele; N36.41 Hypermobility of urethra; N95.2 Postmenopausal atrophic vaginitis; Z01.810 Encounter for preprocedural cardiovascular examination; Z01.812 Encounter for preprocedural laboratory examination; Z01.818 Encounter for other preprocedural examination; Z20.828 Contact with and (suspected) exposure to other viral communicable diseases
CPT/HCPCS: 36415; 50590; 71046; 74018; 80048; 85025; 93005; C1758; J0696; Q9967; U0002; J1100; J2001; J2405

== ENCOUNTER → 2020-07-04 | Outpatient (CLI) | payer BC ==
[~2020-07-04] MED LIST changes: -B&O 60MG R/S 60 MG SUPP PR ONE; -CEFTRIAXONE SOD 1 GM/NS 50 ML 50 ML IV ONE; -DEXAMETHASONE SOD PHOS INJ 4 MG/ML VIAL ONE; -IOPAMIDOL 300MG/ML 50ML INFUS..BTL IV ONE; -LIDOCAINE HCL 2% LOCAL INJ 5 ML SDV VIAL INJ ONE; -ONDANSETRON HCL INJ 2MG/ML 2ML 2 MG/ML VIAL ONE; -PROPOFOL IV EMULSION 10 MG/ML 20 ML VIAL ONE; -SEVOFLURANE INHAL SOLN 250 ML PEN BTL ONE
== END ==
LOC: RAD 10:19
PROVIDERS: ATTEND Urology
DX: N20.0 Calculus of kidney (principal)
CPT/HCPCS: 74018

== ENCOUNTER → 2020-08-30 | Day surgery (SDC) | payer BC ==
[2020-08-27 14:15] LABS: BASOPHILS % 0.6 % (0.0-1.0); EOSINOPHILS # (AUTO) 0.2 (0.0-0.4); EOSINOPHILS % 5.6 % (0.0-6.0); HEMOGLOBIN 11.9 g/dL (12.0-16.0); LYMPHOCYTES # (AUTO) 1.5 (1.0-3.2); LYMPHOCYTES % 40.4 % (18.0-39.1); MEAN CORPUSCULAR HEMOGLOBIN 30.1 pg (28-32); MEAN CORPUSCULAR HGB CONC 33.1 g/dL (31-35); MEAN CORPUSCULAR VOLUME 90.9 fL (81-99); MONOCYTES # (AUTO) 0.4 (0.2-0.8); MONOCYTES % 10.9 % (4.4-11.3); NEUTROPHILS # (AUTO) 1.5 (2.1-6.9); NEUTROPHILS % 42.2 % (38.7-80.0); PLATELET COUNT 119 x10e3/uL (140-360); RED BLOOD COUNT 3.96 x10e6/uL (3.6-5.1); RED CELL DISTRIBUTION WIDTH 12.9 % (11.7-14.4)
[2020-08-27 14:34] LABS: ANION GAP 15.1 mmol/L (8-16); BLOOD UREA NITROGEN 13 mg/dL (7-26); BUN/CREATININE RATIO 19 (6-25); CALCIUM 8.8 mg/dL (8.4-10.2); CARBON DIOXIDE 24 mmol/L (22-29); CHLORIDE 109 mmol/L (98-107); CREATININE, SERUM 0.68 mg/dL (0.57-1.11); EST GLOMERULAR FILTRATION RATE > 60 ML/MIN (60-); GLUCOSE 89 mg/dL (74-118); POTASSIUM 4.1 mmol/L (3.5-5.1); SODIUM 144 mmol/L (136-145)
[~2020-08-30] MED LIST changes: +AMPICILLIN SOD 1 GM/NS 50ML 50 ML IV ONE; +B&O 60MG R/S 60 MG SUPP PR ONE; +DEXAMETHASONE SOD PHOS INJ 4 MG/ML VIAL ONE; +EPHEDRINE SULFATE INJ 50 MG/ML VIAL ONE; +GENTAMICIN 80MG/NS 100 ML 200 ML IV ONE; +IOPAMIDOL 300MG/ML 50ML INFUS..BTL IV ONE; +LIDOCAINE HCL 2% JELLY 5 ML TUBE ONE; +LIDOCAINE HCL 2% LOCAL INJ 5 ML SDV VIAL INJ ONE; +ONDANSETRON HCL INJ 2MG/ML 2ML 2 MG/ML VIAL ONE; +PROPOFOL IV EMULSION 10 MG/ML 20 ML VIAL ONE; +SEVOFLURANE INHAL SOLN 250 ML PEN BTL ONE
[2020-08-30 11:05] VITALS: BP 148/88
== END | disposition home or self-care (01) ==
LOC: OR 07:30
PROVIDERS: ATTEND Urology
DX: N20.0 Calculus of kidney (principal); N39.0 Urinary tract infection, site not specified; N81.10 Cystocele, unspecified; N81.6 Rectocele; N95.2 Postmenopausal atrophic vaginitis; Z01.810 Encounter for preprocedural cardiovascular examination; Z01.812 Encounter for preprocedural laboratory examination; Z01.818 Encounter for other preprocedural examination; Z20.822 Contact with and (suspected) exposure to COVID-19; Z95.810 Presence of automatic (implantable) cardiac defibrillator
CPT/HCPCS: 36415; 50590; 74018; 80048; 83970; 84550; 85025; 93005; C1758; J0290; J1580; Q9967; U0002